=== PATIENT | female | born 1960 | race Caucasian/White ===

== ENCOUNTER 2018-10-19 12:28 | Observation (INO) | payer MEDICAID ==
[~2018-10-19] VITALS: Ht 160 cm; Wt 87.9 kg
[2018-10-19] MEDS ORDERED: LORazepam 1MG TABLET PO ONE ×2 (13:30→16:00)
[2018-10-19 13:33] LABS: ALANINE AMINOTRANSFERASE 32 U/L (12-78); ALBUMIN 4.1 g/dL (3.4-5.0); ANION GAP 8 mmol/L (5-15); CALCIUM 9.8 mg/dL (8.5-10.1); CHLORIDE 108 mmol/L (98-107); CREATININE 1.05 mg/dL (0.55-1.02)
[2018-10-19 13:34] LABS: SALICYLATE LEVEL < 1.7 mg/dL (2.8-20.0)
[2018-10-19] MEDS ORDERED: LORazepam 1MG TABLET ONE ×3 (13:34→17:22)
[2018-10-19 13:35] LABS: ALKALINE PHOSPHATASE 130 U/L (45-117); BILIRUBIN,TOTAL 0.3 mg/dL (0.2-1.0); TOTAL PROTEIN 7.6 g/dL (6.4-8.2)
[2018-10-19 13:37] LABS: ACETAMINOPHEN < 2 mcg/mL (10-30); BASOPHILS # (AUTO) 0.02 x10^3/uL (0-0.1); BASOPHILS % (AUTO) 0 % (0-1); EOSINOPHILS % (AUTO) 1 % (1-7); LYMPHOCYTES # (AUTO) 0.94 x10^3/uL (1-3.4); LYMPHOCYTES % (AUTO) 13 % (22-44); MD NO; MEAN CORPUSCULAR HEMOGLOBIN 32.3 pg (27.0-34.8); MEAN CORPUSCULAR HGB CONC 33.9 g/dL (32.4-35.8); MEAN CORPUSCULAR VOLUME 95.3 fL (80-100); MEAN PLATELET VOLUME 7.9 fL (7.4-10.4); MONOCYTES # (AUTO) 0.54 x10^3/uL (0.2-0.8); MONOCYTES % (AUTO) 7 % (2-9); NEUTROPHILS # (AUTO) 5.75 x10^3/uL (1.8-6.8); NEUTROPHILS % (AUTO) 78 % (42-75); PLATELET COUNT 318 x10^3/uL (130-400); RED CELL DISTRIBUTION WIDTH 13.5 % (9.6-15.2)
[2018-10-19 15:09] LABS: MICROSCOPIC AUTO
[2018-10-19 15:12] LABS: CULTURE INDICATED? YES
[2018-10-19 15:26] LABS: AMPHETAMINE SCREEN, URINE Negative (Negative); BARBITURATE SCREEN, URINE Negative (Negative); BENZODIAZEPINE SCREEN, URINE Negative (Negative); CANNABINOID SCREEN, URINE Negative (Negative); COCAINE SCREEN, URINE Negative (Negative); METHADONE SCREEN, URINE Negative (Negative); OPIATE SCREEN, URINE Negative (Negative)
[2018-10-19] MEDS ORDERED: CHOL20002 PO (15:28)
[2018-10-19] MEDS ORDERED: MILK500C PO (15:28)
[2018-10-19] MEDS ORDERED: LITH450T PO (15:28)
[2018-10-19] MEDS ORDERED: TUMERIC (15:28)
[2018-10-19] MEDS ORDERED: [UNRECOGNIZED DRUG - CODE] PO (15:28)
[2018-10-19] MEDS ORDERED: LORA-446 PO (15:28)
[2018-10-19] MEDS ORDERED: POTA10TA6 PO (15:28)
[2018-10-19] MEDS ORDERED: ASCO-96 PO (15:28)
[2018-10-19] MEDS ORDERED: PRAV10TA2 PO (15:28)
[2018-10-19] MEDS ORDERED: [UNRECOGNIZED DRUG - OTHER] (15:28)
[2018-10-19] MEDS ORDERED: LEVO100T5 PO (15:28)
[2018-10-19] MEDS ORDERED: LEVO1CAP2 PO (15:28)
[2018-10-19] MEDS ORDERED: VALB80CA PO ×2 (15:28)
[2018-10-19] MEDS ORDERED: QUET300T6 PO (15:28)
[2018-10-19] MEDS ORDERED: QUET25TA5 PO (15:28)
[2018-10-19] MEDS ORDERED: BREX2TAB PO (15:28)
[2018-10-19] MEDS ORDERED: MELA1TAB8 PO (15:28)
[2018-10-19] MEDS ORDERED: KRIL500C PO (15:28)
[2018-10-19] MEDS ORDERED: ESTR30CR TP (15:28)
[2018-10-19] MEDS ORDERED: POLY17PO5 PO (15:28)
[2018-10-19] MEDS ORDERED: NEXIUM PO (15:28)
[2018-10-19] MEDS ORDERED: FURO20TA3 PO (15:28)
[2018-10-19] MEDS ORDERED: ZOLP-413 PO (15:28)
[2018-10-19] MEDS ORDERED: ESCI10TA10 PO (15:28)
[2018-10-19] MEDS ORDERED: SENN1TAB67 PO (15:28)
[2018-10-19] MEDS ORDERED: ACET325T26 PO (15:28)
[2018-10-19] MEDS ORDERED: QUET100T4 PO (15:28)
[2018-10-19] MEDS ORDERED: QUET50TA5 PO (15:28)
--- NOTE | 2018-10-19 16:09 | NUR ---
DR WEBER AT BEDSIDE, ASSESSMENT IN PROGRESS
[2018-10-19 16:58] LABS: FREE T4 (FREE THYROXINE) 0.9 ng/dL (0.76-1.46)
--- NOTE | 2018-10-19 16:59 | NUR ---
SITTER MONITORING FROM [facility]
[2018-10-19] MEDS: LORazepam 1MG TABLET PO PRN (17:25)
--- NOTE | 2018-10-19 17:26 | NUR ---
DR WEBER AND KARINA TO PT BEDSIDE, OK TO GIVE ATIVAN DOSE NOW. PT VERY AGITATED
--- NOTE | 2018-10-19 18:10 | NUR ---
SBAR TO JB CHAN VIA TELPHONE
[2018-10-19 19:04] VITALS: BP 144/82
[2018-10-19] MEDS ORDERED: BENZTROPINE 1 MG TABLET PO ONE (20:30)
[2018-10-19] MEDS: ACETAMINOPHEN 500 MG TABLET PO SCH (21:00)
[2018-10-19] MEDS: POLYETHYLENE GLYCOL 17 GM PACKET PO SCH (21:00)
[2018-10-19] MEDS: PYRIDOXINE 50MG TABLET PO SCH (21:00)
[2018-10-19] MEDS ORDERED: QUETIAPINE 25MG TABLET PO SCH (21:00)
[2018-10-19] MEDS ORDERED: VALBENAZINE TOSYLATE PO SCH (21:00)
[2018-10-19] MEDS: PRAVASTATIN 20 MG TABLET PO SCH (21:00)
[2018-10-19] MEDS ORDERED: QUETIAPINE FUMARATE 25 MG PO SCH (21:00)
[2018-10-19] MEDS ORDERED: KRILL OIL PO SCH (21:00)
[2018-10-19] MEDS ORDERED: ZOLPIDEM 5MG TABLET PO SCH (21:00)
[2018-10-19] MEDS ORDERED: [UNRECOGNIZED DRUG - OTHER] PO SCH (21:00)
[2018-10-19] MEDS ORDERED: VALBENAZINE TOSYLATE 80 MG PO SCH (21:00)
[2018-10-19] MEDS ORDERED: LORazepam 1MG TABLET PO SCH (21:00)
[2018-10-19] MEDS ORDERED: VALBENAZINE TOSYLATE 80 MG HOMEMEDPO SCH (21:02)
[2018-10-19] MEDS ORDERED: [UNRECOGNIZED DRUG - OTHER] HOMEMEDPO SCH (21:02)
[2018-10-19] MEDS: SENNA/DOCUSATE TABLET PO SCH (21:14)
[2018-10-19] MEDS: MELATONIN 5 MG TABLET PO SCH (21:14)
[2018-10-20 05:34] LABS: BASOPHILS # (AUTO) 0.02 x10^3/uL (0-0.1); BASOPHILS % (AUTO) 0 % (0-1); EOSINOPHILS # (AUTO) 0.22 x10^3/uL (0-0.4); EOSINOPHILS % (AUTO) 4 % (1-7); LYMPHOCYTES % (AUTO) 28 % (22-44); MD NO; MEAN CORPUSCULAR HEMOGLOBIN 31.9 pg (27.0-34.8); MEAN CORPUSCULAR HGB CONC 33.1 g/dL (32.4-35.8); MEAN CORPUSCULAR VOLUME 96.3 fL (80-100); MEAN PLATELET VOLUME 7.7 fL (7.4-10.4); MONOCYTES # (AUTO) 0.61 x10^3/uL (0.2-0.8); MONOCYTES % (AUTO) 10 % (2-9); NEUTROPHILS # (AUTO) 3.54 x10^3/uL (1.8-6.8); NEUTROPHILS % (AUTO) 58 % (42-75); PLATELET COUNT 298 x10^3/uL (130-400); RED BLOOD COUNT 4.33 x10^6/uL (3.82-5.3); RED CELL DISTRIBUTION WIDTH 13.7 % (9.6-15.2)
[2018-10-20 05:38] LABS: ANION GAP 7 mmol/L (5-15); CALCIUM 9.3 mg/dL (8.5-10.1); CHLORIDE 110 mmol/L (98-107)
[2018-10-20] MEDS: LORazepam 1MG TABLET PO PRN ×2 (07:16→11:00)
[2018-10-20 07:23] VITALS: BP 177/92
[2018-10-20] MEDS ORDERED: ESCITALOPRAM 10MG TABLET PO SCH (09:00)
[2018-10-20] MEDS ORDERED: QUETIAPINE 200 MG TABLET PO SCH (09:00)
[2018-10-20] MEDS ORDERED: QUETIAPINE 100MG TABLET PO SCH (09:00)
[2018-10-20] MEDS ORDERED: FUROSEMIDE 20 MG TABLET PO SCH (09:00)
[2018-10-20] MEDS ORDERED: LITHIUM CARBONATE 150 MG CAPSULE PO SCH (09:00)
[2018-10-20] MEDS ORDERED: BREXPIPRAZOLE 2 MG HOMEMEDPO SCH (09:00)
[2018-10-20] MEDS: SENNA/DOCUSATE TABLET PO SCH ×2 (09:26→20:58)
[2018-10-20] MEDS: ASCORBIC ACID 500 MG TABLET PO SCH (09:26)
[2018-10-20] MEDS: POTASSIUM CHLORIDE 10 MEQ TABLET.ER PO SCH (09:26)
[2018-10-20] MEDS: POLYETHYLENE GLYCOL 17 GM PACKET PO SCH ×2 (09:26→21:00)
[2018-10-20] MEDS: PANTOPROZOLE 40MG TABLET PO SCH (09:29)
[2018-10-20] MEDS: CHOLECALCIFEROL 5,000u TAB PO SCH (10:28)
[2018-10-20] MEDS: LEVOTHYROXINE 100 MCG TABLET PO SCH (10:28)
[2018-10-20 15:11] VITALS: BP 149/96
[2018-10-20 15:50] LABS: ALANINE AMINOTRANSFERASE 29 U/L (12-78); ALBUMIN 4.4 g/dL (3.4-5.0); ANION GAP 7 mmol/L (5-15); CALCIUM 9.6 mg/dL (8.5-10.1); CHLORIDE 111 mmol/L (98-107)
[2018-10-20 15:52] LABS: ALKALINE PHOSPHATASE 120 U/L (45-117); BILIRUBIN,TOTAL 0.4 mg/dL (0.2-1.0); CREATINE KINASE, TOTAL 542 U/L (26-192); TOTAL PROTEIN 7.8 g/dL (6.4-8.2)
[2018-10-20 17:11] VITALS: BP 177/107
[2018-10-20] MEDS ORDERED: SODIUM CHLORIDE 0.9%, 500ML IVBOLUS ONE (17:30)
[2018-10-20] MEDS ORDERED: hydrALAzine 20 MG/ML, 1ML IV PRN (17:30)
[2018-10-20 19:36] VITALS: BP 146/89
[2018-10-20] MEDS: MELATONIN 5 MG TABLET PO SCH (20:58)
[2018-10-20] MEDS: PYRIDOXINE 50MG TABLET PO SCH (20:58)
[2018-10-20] MEDS: PRAVASTATIN 20 MG TABLET PO SCH (20:58)
[2018-10-20] MEDS: ACETAMINOPHEN 500 MG TABLET PO SCH (20:58)
[2018-10-20] MEDS: SODIUM CHLORIDE 0.9% 1,000 ML IV SCH (21:58)
[2018-10-21 02:30] VITALS: BP 105/66
[2018-10-21] MEDS: LEVOTHYROXINE 100 MCG TABLET PO SCH (06:01)
[2018-10-21 06:09] LABS: ALBUMIN 3.4 g/dL (3.4-5.0); ANION GAP 6 mmol/L (5-15); CALCIUM 8.8 mg/dL (8.5-10.1); CHLORIDE 114 mmol/L (98-107)
[2018-10-21 06:13] LABS: ALANINE AMINOTRANSFERASE 25 U/L (12-78); ALKALINE PHOSPHATASE 92 U/L (45-117); BILIRUBIN,TOTAL 0.7 mg/dL (0.2-1.0); CREATINE KINASE, TOTAL 505 U/L (26-192); CREATININE 0.84 mg/dL (0.55-1.02); TOTAL PROTEIN 6.2 g/dL (6.4-8.2)
[2018-10-21 07:03] VITALS: BP 136/78
[2018-10-21] MEDS: ASCORBIC ACID 500 MG TABLET PO SCH (09:28)
[2018-10-21] MEDS: SENNA/DOCUSATE TABLET PO SCH ×2 (09:28→21:21)
[2018-10-21] MEDS: PANTOPROZOLE 40MG TABLET PO SCH (09:28)
[2018-10-21] MEDS: POLYETHYLENE GLYCOL 17 GM PACKET PO SCH ×2 (09:28→21:21)
[2018-10-21] MEDS: CHOLECALCIFEROL 5,000u TAB PO SCH (09:28)
[2018-10-21] MEDS: POTASSIUM CHLORIDE 10 MEQ TABLET.ER PO SCH (09:28)
[2018-10-21] MEDS: SODIUM CHLORIDE 0.9% 1,000 ML IV SCH (09:29)
[2018-10-21 12:52] VITALS: BP 151/97
[2018-10-21 21:04] VITALS: BP 113/75
[2018-10-21] MEDS: ACETAMINOPHEN 500 MG TABLET PO SCH (21:21)
[2018-10-21] MEDS: MELATONIN 5 MG TABLET PO SCH (21:21)
[2018-10-21] MEDS: PRAVASTATIN 20 MG TABLET PO SCH (21:21)
[2018-10-22 04:38] VITALS: BP 125/77
[2018-10-22] MEDS: LEVOTHYROXINE 100 MCG TABLET PO SCH (05:10)
[2018-10-22 05:44] LABS: BASOPHILS # (AUTO) 0.02 x10^3/uL (0-0.1); BASOPHILS % (AUTO) 0 % (0-1); EOSINOPHILS # (AUTO) 0.16 x10^3/uL (0-0.4); EOSINOPHILS % (AUTO) 2 % (1-7); LYMPHOCYTES # (AUTO) 2.23 x10^3/uL (1-3.4); LYMPHOCYTES % (AUTO) 32 % (22-44); MD NO; MEAN CORPUSCULAR HEMOGLOBIN 32.3 pg (27.0-34.8); MEAN CORPUSCULAR HGB CONC 33.6 g/dL (32.4-35.8); MEAN CORPUSCULAR VOLUME 96.1 fL (80-100); MEAN PLATELET VOLUME 7.8 fL (7.4-10.4); MONOCYTES # (AUTO) 0.61 x10^3/uL (0.2-0.8); MONOCYTES % (AUTO) 9 % (2-9); NEUTROPHILS # (AUTO) 4.03 x10^3/uL (1.8-6.8); NEUTROPHILS % (AUTO) 57 % (42-75); PLATELET COUNT 287 x10^3/uL (130-400); RED BLOOD COUNT 4.07 x10^6/uL (3.82-5.3); RED CELL DISTRIBUTION WIDTH 13.6 % (9.6-15.2)
[2018-10-22 05:52] LABS: ALBUMIN 4.1 g/dL (3.4-5.0); ANION GAP 7 mmol/L (5-15); CALCIUM 9.4 mg/dL (8.5-10.1); CHLORIDE 114 mmol/L (98-107)
[2018-10-22 05:59] LABS: ALANINE AMINOTRANSFERASE 33 U/L (12-78); ALKALINE PHOSPHATASE 105 U/L (45-117); BILIRUBIN,TOTAL 0.5 mg/dL (0.2-1.0); CREATINE KINASE, TOTAL 534 U/L (26-192); CREATININE 0.84 mg/dL (0.55-1.02); TOTAL PROTEIN 7.4 g/dL (6.4-8.2)
[2018-10-22 08:30] VITALS: BP_SYST 125; BP_SYST 127; BP_DIAS 76
[2018-10-22] MEDS: POLYETHYLENE GLYCOL 17 GM PACKET PO SCH (09:00)
[2018-10-22] MEDS: PANTOPROZOLE 40MG TABLET PO SCH (09:40)
[2018-10-22] MEDS: POTASSIUM CHLORIDE 10 MEQ TABLET.ER PO SCH (09:40)
[2018-10-22] MEDS: CHOLECALCIFEROL 5,000u TAB PO SCH (09:41)
[2018-10-22] MEDS: SENNA/DOCUSATE TABLET PO SCH (09:41)
[2018-10-22] MEDS: ASCORBIC ACID 500 MG TABLET PO SCH (09:41)
[2018-10-22] MEDS ORDERED: CLON1TAB11 PO (14:48)
== END 2018-10-22 16:48 ==
LOC: ED 13:31 → EDIP 15:43 → 2N 18:40 → 4EST 10-20 18:28
PROVIDERS: ADMIT Internal Medicine; ATTEND Internal Medicine
DX: F23 Brief psychotic disorder (principal); E03.9 Hypothyroidism, unspecified; F25.0 Schizoaffective disorder, bipolar type; F41.9 Anxiety disorder, unspecified; G20 Parkinson's disease; G24.01 Drug induced subacute dyskinesia; G25.2 Other specified forms of tremor; K76.0 Fatty (change of) liver, not elsewhere classified; Z82.0 Family history of epilepsy and other diseases of the nervous system; Z82.49 Family history of ischemic heart disease and other diseases of the circulatory system; Z90.49 Acquired absence of other specified parts of digestive tract; Z79.899 Other long term (current) drug therapy
CPT/HCPCS: 36415; 80048; 80053; 80178; 80307; 80329; 81001; 82175; 82550; 82570; 83655; 83825; 84439; 84443; 84481; 85025; 86592; 87086; 93005; 99284; G0378; J7030; J7040; G0480

== ENCOUNTER 2018-10-22 14:34 | Inpatient (IN) | payer MEDICAID ==
[~2018-10-22] VITALS: Ht 160 cm; Wt 103.9 kg
[~2018-10-22 14:34] MED LIST: ACET325T26 PO; ASCO-96 PO; BREX2TAB PO; CHOL20002 PO; ESCI10TA10 PO; ESTR30CR TP; FURO20TA3 PO; KRIL500C PO; LEVO100T5 PO; LEVO1CAP2 PO; LITH450T PO; LORA-446 PO; MELA1TAB8 PO; MILK500C PO; NEXIUM PO; POLY17PO5 PO; POTA10TA6 PO; PRAV10TA2 PO; QUET100T4 PO; QUET25TA5 PO; QUET300T7 PO; QUET50TA5 PO; SENN1TAB67 PO; TUMERIC; VALB80CA PO; ZOLP-413 PO; [UNRECOGNIZED DRUG - CODE] PO; [UNRECOGNIZED DRUG - OTHER]
[2018-10-22] MEDS ORDERED: CLON1TAB11 PO (14:48)
[2018-10-22] MEDS ORDERED: DOCUSATE 100 MG CAPSULE PO PRN (15:00)
[2018-10-22] MEDS ORDERED: BISACODYL 10 MG SUPP PR PRN (15:00)
[2018-10-22] MEDS ORDERED: POLYETHYLENE GLYCOL 17 GM PACKET PO PRN (15:00)
[2018-10-22] MEDS ORDERED: PLEASE ENTER HEIGHT AND WEIGHT MC SCH (17:01)
[2018-10-22 17:30] VITALS: BP 133/85
[2018-10-22] MEDS ORDERED: LORazepam 2 MG/ML, 1ML ONE (17:55)
[2018-10-22] MEDS: LORazepam 2 MG/ML, 1ML IM PRN (18:01)
[2018-10-22 20:51] VITALS: BP 136/70
[2018-10-23 06:06] LABS: ANION GAP 8 mmol/L (5-15); BASOPHILS # (AUTO) 0.02 x10^3/uL (0-0.1); BASOPHILS % (AUTO) 0 % (0-1); CALCIUM 9.1 mg/dL (8.5-10.1); CHLORIDE 111 mmol/L (98-107); EOSINOPHILS # (AUTO) 0.23 x10^3/uL (0-0.4); EOSINOPHILS % (AUTO) 3 % (1-7); LYMPHOCYTES # (AUTO) 1.53 x10^3/uL (1-3.4); LYMPHOCYTES % (AUTO) 19 % (22-44); MD NO; MEAN CORPUSCULAR HEMOGLOBIN 32.1 pg (27.0-34.8); MEAN CORPUSCULAR HGB CONC 33.5 g/dL (32.4-35.8); MEAN CORPUSCULAR VOLUME 95.8 fL (80-100); MEAN PLATELET VOLUME 7.8 fL (7.4-10.4); MONOCYTES # (AUTO) 0.69 x10^3/uL (0.2-0.8); MONOCYTES % (AUTO) 9 % (2-9); NEUTROPHILS # (AUTO) 5.53 x10^3/uL (1.8-6.8); NEUTROPHILS % (AUTO) 69 % (42-75); PLATELET COUNT 284 x10^3/uL (130-400); RED BLOOD COUNT 4.05 x10^6/uL (3.82-5.3); RED CELL DISTRIBUTION WIDTH 13.3 % (9.6-15.2)
[2018-10-23 06:30] LABS: ALANINE AMINOTRANSFERASE 41 U/L (12-78); ALKALINE PHOSPHATASE 102 U/L (45-117); BILIRUBIN,TOTAL 0.4 mg/dL (0.2-1.0); CHOL/HDL RATIO 2.4; CHOLESTEROL, TOTAL 166 mg/dL (140-239); CREATININE 0.85 mg/dL (0.55-1.02); HDL CHOL % 42 % (28-40); HDL CHOLESTEROL (DIRECT) 70 mg/dL (40-60); LDL CHOLESTEROL,CALCULATED 80 mg/dL (54-169); LDL/HDL RATIO 1.1 (0.5-3.0); TOTAL PROTEIN 7.1 g/dL (6.4-8.2); TRIGLYCERIDES 81 mg/dL (50-200); VLDL CHOLESTEROL 16 mg/dL (0-25)
[2018-10-23 06:31] LABS: FREE T4 (FREE THYROXINE) 1.09 ng/dL (0.76-1.46); THYROID STIMULATING HORMONE 0.159 mIU/L (0.358-3.740)
[2018-10-23 06:34] LABS: FOLATE LEVEL > 20.0 ng/mL (3.1-17.5)
[2018-10-23 07:30] VITALS: BP 141/74
[2018-10-23] MEDS: QUETIAPINE 25MG TABLET PO SCH ×3 (15:55→20:23)
[2018-10-23 16:00] VITALS: BP 144/85
[2018-10-23 19:28] VITALS: BP 132/77
[2018-10-24 06:54] LABS: ANION GAP 8 mmol/L (5-15); CALCIUM 8.8 mg/dL (8.5-10.1); CHLORIDE 112 mmol/L (98-107); CREATININE 0.76 mg/dL (0.55-1.02)
[2018-10-24 06:57] LABS: CREATINE KINASE, TOTAL 549 U/L (26-192)
[2018-10-24 07:20] VITALS: BP 115/85
[2018-10-24] MEDS: QUETIAPINE 25MG TABLET PO SCH ×3 (09:48→20:23)
[2018-10-24 19:27] VITALS: BP 140/83
[2018-10-25] MEDS: MELATONIN 5 MG TABLET PO PRN (01:23)
[2018-10-25 07:12] VITALS: BP 156/88
[2018-10-25] MEDS: QUETIAPINE 25MG TABLET PO SCH ×3 (09:43→20:17)
[2018-10-25] MEDS: ACETAMINOPHEN 325 MG TABLET PO PRN (16:17)
[2018-10-25 16:23] VITALS: BP 147/83
[2018-10-25 19:37] VITALS: BP 156/76
[2018-10-25] MEDS: PRIMIDONE 50 MG TABLET PO SCH (20:17)
[2018-10-26] MEDS: MELATONIN 5 MG TABLET PO PRN ×2 (00:31→21:02)
[2018-10-26 07:44] VITALS: BP 159/87
[2018-10-26] MEDS: QUETIAPINE 25MG TABLET PO SCH ×3 (09:45→21:02)
[2018-10-26 19:22] VITALS: BP_SYST 116; BP_SYST 144; BP_DIAS 73; BP_DIAS 85
[2018-10-26] MEDS ORDERED: PRIMIDONE 250 MG TABLET ONE (20:52)
[2018-10-26] MEDS: PRIMIDONE 50 MG TABLET PO SCH (21:57)
[2018-10-27 07:42] VITALS: BP 163/95
[2018-10-27] MEDS: QUETIAPINE 25MG TABLET PO SCH ×3 (08:55→21:07)
[2018-10-27 20:11] VITALS: BP 159/87
[2018-10-27] MEDS: PRIMIDONE 50 MG TABLET PO SCH (21:08)
[2018-10-28 07:32] VITALS: BP 148/84
[2018-10-28] MEDS: QUETIAPINE 25MG TABLET PO SCH ×3 (08:34→20:19)
[2018-10-28 19:20] VITALS: BP 166/90
[2018-10-28] MEDS: TRIHEXYPHENIDYL 2MG TABLET PO SCH (20:18)
[2018-10-28] MEDS: PRIMIDONE 50 MG TABLET PO SCH (20:18)
[2018-10-28 20:39] VITALS: BP 163/100
[2018-10-28 21:31] VITALS: BP 115/79
[2018-10-29 07:21] VITALS: BP 176/89
[2018-10-29] MEDS: VENLAFAXINE XR 37.5MG CAP.ER.24H PO SCH (09:33)
[2018-10-29] MEDS: TRIHEXYPHENIDYL 2MG TABLET PO SCH ×2 (09:33→20:18)
[2018-10-29] MEDS: VITAMIN E 400 UNITS CAPSULE PO SCH (09:34)
[2018-10-29] MEDS: QUETIAPINE 25MG TABLET PO SCH ×3 (09:34→20:17)
[2018-10-29] MEDS: PRIMIDONE 50 MG TABLET PO SCH (20:18)
[2018-10-29] MEDS: MELATONIN 5 MG TABLET PO PRN (20:18)
[2018-10-30 07:20] VITALS: BP 151/89
[2018-10-30] MEDS: QUETIAPINE 25MG TABLET PO SCH ×3 (08:29→20:15)
[2018-10-30] MEDS: VENLAFAXINE XR 37.5MG CAP.ER.24H PO SCH (08:29)
[2018-10-30] MEDS: VITAMIN E 400 UNITS CAPSULE PO SCH (08:29)
[2018-10-30 19:12] VITALS: BP 169/98
[2018-10-30] MEDS: TRIHEXYPHENIDYL 2MG TABLET PO SCH (20:11)
[2018-10-30] MEDS: PRIMIDONE 50 MG TABLET PO SCH (20:13)
[2018-10-30 20:57] VITALS: BP 141/83
[2018-10-31] MEDS: MELATONIN 5 MG TABLET PO PRN (00:48)
[2018-10-31] MEDS: ACETAMINOPHEN 325 MG TABLET PO PRN ×2 (00:48→22:00)
[2018-10-31 07:40] VITALS: BP 142/75
[2018-10-31] MEDS: QUETIAPINE 25MG TABLET PO SCH ×3 (08:15→22:00)
[2018-10-31] MEDS: VITAMIN E 400 UNITS CAPSULE PO SCH ×2 (08:15→09:00)
[2018-10-31] MEDS: VENLAFAXINE XR 37.5MG CAP.ER.24H PO SCH (08:15)
[2018-10-31] MEDS: LEVOTHYROXINE 50 MCG TABLET PO SCH (15:46)
[2018-10-31] MEDS: LITHIUM CARBONATE 300 MG CAPSULE PO SCH (15:46)
[2018-10-31 19:44] VITALS: BP 152/86
[2018-10-31] MEDS: TRIHEXYPHENIDYL 2MG TABLET PO SCH (22:00)
[2018-10-31] MEDS: PRIMIDONE 50 MG TABLET PO SCH (22:00)
[2018-11-01 07:38] VITALS: BP 153/85
[2018-11-01] MEDS: LEVOTHYROXINE 50 MCG TABLET PO SCH (08:52)
[2018-11-01] MEDS: LITHIUM CARBONATE 300 MG CAPSULE PO SCH (08:52)
[2018-11-01] MEDS: VITAMIN E 400 UNITS CAPSULE PO SCH (08:52)
[2018-11-01] MEDS: VENLAFAXINE 75 MG CAP ER PO SCH (08:52)
[2018-11-01] MEDS: QUETIAPINE 25MG TABLET PO SCH ×3 (08:58→19:52)
[2018-11-01 15:12] LABS: BASOPHILS # (AUTO) 0.03 x10^3/uL (0-0.1); BASOPHILS % (AUTO) 0 % (0-1); EOSINOPHILS # (AUTO) 0.04 x10^3/uL (0-0.4); EOSINOPHILS % (AUTO) 0 % (1-7); LYMPHOCYTES # (AUTO) 1.39 x10^3/uL (1-3.4); LYMPHOCYTES % (AUTO) 13 % (22-44); MD NO; MEAN CORPUSCULAR HGB CONC 32.3 g/dL (32.4-35.8); MEAN CORPUSCULAR VOLUME 95.8 fL (80-100); MEAN PLATELET VOLUME 8.6 fL (7.4-10.4); MONOCYTES # (AUTO) 0.91 x10^3/uL (0.2-0.8); MONOCYTES % (AUTO) 8 % (2-9); NEUTROPHILS # (AUTO) 8.47 x10^3/uL (1.8-6.8); NEUTROPHILS % (AUTO) 78 % (42-75); PLATELET COUNT 345 x10^3/uL (130-400); RED BLOOD COUNT 4.96 x10^6/uL (3.82-5.3); RED CELL DISTRIBUTION WIDTH 13.3 % (9.6-15.2)
[2018-11-01 15:13] LABS: ALANINE AMINOTRANSFERASE 49 U/L (12-78); ALBUMIN 4.1 g/dL (3.4-5.0); ANION GAP 9 mmol/L (5-15); CALCIUM 9.9 mg/dL (8.5-10.1); CHLORIDE 108 mmol/L (98-107); CREATININE 0.96 mg/dL (0.55-1.02)
[2018-11-01 15:15] LABS: ALKALINE PHOSPHATASE 105 U/L (45-117); BILIRUBIN,TOTAL 0.3 mg/dL (0.2-1.0); CREATINE KINASE, TOTAL 65 U/L (26-192); TOTAL PROTEIN 7.9 g/dL (6.4-8.2)
[2018-11-01] MEDS: CLINDAMYCIN PMX 600MG/50ML 50 ML IV SCH ×2 (15:42→22:48)
[2018-11-01] MEDS: NS + 20MEQ KCL 1,000 ML IV SCH (16:41)
[2018-11-01] MEDS: TRIHEXYPHENIDYL 2MG TABLET PO SCH (19:52)
[2018-11-01] MEDS: PRIMIDONE 50 MG TABLET PO SCH (19:53)
[2018-11-01 22:23] VITALS: BP 174/95
[2018-11-02] MEDS: LORazepam 2 MG/ML, 1ML IM PRN (02:19)
[2018-11-02] MEDS: LEVOTHYROXINE 50 MCG TABLET PO SCH (06:15)
[2018-11-02] MEDS: NS + 20MEQ KCL 1,000 ML IV SCH (06:20)
[2018-11-02] MEDS: CLINDAMYCIN PMX 600MG/50ML 50 ML IV SCH ×3 (07:09→23:26)
[2018-11-02 07:28] VITALS: BP 163/82
[2018-11-02] MEDS: QUETIAPINE 25MG TABLET PO SCH ×2 (08:40→21:36)
[2018-11-02] MEDS: LITHIUM CARBONATE 300 MG CAPSULE PO SCH (08:40)
[2018-11-02] MEDS: VENLAFAXINE 75 MG CAP ER PO SCH (08:40)
[2018-11-02] MEDS: VITAMIN E 400 UNITS CAPSULE PO SCH (08:41)
[2018-11-02] MEDS: ENOXAPARIN 40 MG/0.4 ML SQ SCH (14:53)
[2018-11-02] MEDS: SODIUM CHLORIDE 0.9% 1,000 ML IV SCH (20:48)
[2018-11-02 21:00] VITALS: BP 171/94
[2018-11-02] MEDS: TRIHEXYPHENIDYL 2MG TABLET PO SCH (21:36)
[2018-11-02] MEDS: PRIMIDONE 50 MG TABLET PO SCH (21:37)
[2018-11-02 22:34] VITALS: BP 171/81
[2018-11-02 22:36] VITALS: BP 171/81
[2018-11-03] MEDS: MELATONIN 5 MG TABLET PO PRN (01:50)
[2018-11-03] MEDS: SODIUM CHLORIDE 0.9% 1,000 ML IV SCH ×2 (03:20→14:43)
[2018-11-03] MEDS: LEVOTHYROXINE 50 MCG TABLET PO SCH (05:50)
[2018-11-03] MEDS ORDERED: LORazepam 2 MG/ML, 1ML IM ONE (07:00)
[2018-11-03 07:30] VITALS: BP 157/94
[2018-11-03] MEDS: CLINDAMYCIN PMX 600MG/50ML 50 ML IV SCH ×3 (08:18→22:13)
[2018-11-03] MEDS: VENLAFAXINE 75 MG CAP ER PO SCH (08:22)
[2018-11-03] MEDS: LITHIUM CARBONATE 150 MG CAPSULE PO SCH (08:23)
[2018-11-03] MEDS: VITAMIN E 400 UNITS CAPSULE PO SCH (08:52)
[2018-11-03] MEDS ORDERED: TPN PER PHARMACY MC PRN (11:00)
[2018-11-03] MEDS: ENOXAPARIN 40 MG/0.4 ML SQ SCH (14:04)
[2018-11-03] MEDS ORDERED: FILTER, DISP 1.2 MICRON FOR TPN/PVN IV PRN (15:00)
[2018-11-03] MEDS ORDERED: FAT EMUL IV SCH (17:00)
[2018-11-03] MEDS ORDERED: DEXTROSE 10% 500 ML IV PRN (17:00)
[2018-11-03] MEDS ORDERED: SMOF TPN IV SCH (17:00)
[2018-11-03] MEDS ORDERED: PVN PER PHARMACY IV SCH (17:00)
[2018-11-03] MEDS ORDERED: AMINO ACID 10% IV SCH (17:00)
[2018-11-03] MEDS ORDERED: [UNRECOGNIZED DRUG - OTHER] IV SCH (17:00)
[2018-11-03] MEDS ORDERED: DEXTROSE 50%, 50ML SYRINGE IVPush PRN (17:00)
[2018-11-03] MEDS ORDERED: DEXTROSE 70% IV SCH (17:00)
[2018-11-03 18:15] VITALS: BP 181/73
[2018-11-03] MEDS: PRIMIDONE 50 MG TABLET PO SCH (20:30)
[2018-11-03] MEDS: TRIHEXYPHENIDYL 2MG TABLET PO SCH (20:30)
[2018-11-03] MEDS ORDERED: ZOLPIDEM 5MG TABLET PO SCH (21:00)
[2018-11-04] MEDS: LEVOTHYROXINE 50 MCG TABLET PO SCH (05:35)
[2018-11-04] MEDS: INSULIN REGULAR LOW DOSE Q6H X 48HRS SQ-INSULIN SCH ×2 (06:00→12:41)
[2018-11-04] MEDS: CLINDAMYCIN PMX 600MG/50ML 50 ML IV SCH (06:19)
[2018-11-04 07:38] VITALS: BP 173/104
[2018-11-04 07:38] LABS: ALANINE AMINOTRANSFERASE 36 U/L (12-78); ALBUMIN 3.5 g/dL (3.4-5.0); ANION GAP 6 mmol/L (5-15); CALCIUM 9.3 mg/dL (8.5-10.1); CHLORIDE 116 mmol/L (98-107); CREATININE 0.93 mg/dL (0.55-1.02)
[2018-11-04 07:43] LABS: ALKALINE PHOSPHATASE 101 U/L (45-117); BILIRUBIN,TOTAL 0.4 mg/dL (0.2-1.0); PREALBUMIN 32.9 mg/dL (20.0-40.0); TOTAL PROTEIN 7.3 g/dL (6.4-8.2)
[2018-11-04 08:08] LABS: MEAN CORPUSCULAR HEMOGLOBIN 30.9 pg (27.0-34.8); MEAN CORPUSCULAR HGB CONC 32.8 g/dL (32.4-35.8); MEAN CORPUSCULAR VOLUME 94.3 fL (80-100); MEAN PLATELET VOLUME 8.4 fL (7.4-10.4); PLATELET COUNT 354 x10^3/uL (130-400); RED BLOOD COUNT 4.59 x10^6/uL (3.82-5.3); RED CELL DISTRIBUTION WIDTH 13.6 % (9.6-15.2)
[2018-11-04 08:24] LABS: BASOPHILS # (AUTO) 0.02 x10^3/uL (0-0.1); BASOPHILS % (AUTO) 0 % (0-1); EOSINOPHILS # (AUTO) 0.09 x10^3/uL (0-0.4); EOSINOPHILS % (AUTO) 1 % (1-7); LYMPHOCYTES # (AUTO) 1.45 x10^3/uL (1-3.4); LYMPHOCYTES % (AUTO) 9 % (22-44); MD SCAN; MONOCYTES % (AUTO) 6 % (2-9); NEUTROPHILS # (AUTO) 14.35 x10^3/uL (1.8-6.8); NEUTROPHILS % (AUTO) 85 % (42-75)
[2018-11-04] MEDS: VENLAFAXINE 75 MG CAP ER PO SCH (08:38)
[2018-11-04] MEDS: LITHIUM CARBONATE 150 MG CAPSULE PO SCH (08:39)
[2018-11-04] MEDS: ACETAMINOPHEN 325 MG TABLET PO PRN (08:39)
[2018-11-04] MEDS: VITAMIN E 400 UNITS CAPSULE PO SCH (09:00)
[2018-11-04] MEDS ORDERED: CEFTRIAXONE PMX 2GM/50ML 50 ML IV SCH (10:30)
[2018-11-04 10:48] LABS: MICROSCOPIC NOT IND
[2018-11-04] MEDS ORDERED: FUROSEMIDE 40 MG/4 ML IV ONE (11:30)
[2018-11-04] MEDS ORDERED: hydrALAzine 20 MG/ML, 1ML IV PRN (13:00)
[2018-11-04 14:21] VITALS: BP 158/84
[2018-11-04] MEDS ORDERED: SODIUM CHLORIDE 0.9% 1,000 ML IV SCH (15:00)
[2018-11-04] MEDS: ENOXAPARIN 40 MG/0.4 ML SQ SCH (15:13)
[2018-11-04] MEDS ORDERED: DEXTROSE 70% IV SCH (17:00)
[2018-11-04] MEDS ORDERED: SMOF TPN IV SCH (17:00)
[2018-11-04] MEDS ORDERED: FAT EMUL IV SCH (17:00)
[2018-11-04] MEDS ORDERED: AMINO ACID 10% IV SCH (17:00)
[2018-11-04] MEDS ORDERED: [UNRECOGNIZED DRUG - OTHER] IV SCH (17:00)
[2018-11-05] MEDS ORDERED: TAMSULOSIN 0.4 MG CAP.ER.24H PO SCH (09:00)
[2018-11-05] MEDS ORDERED: LISINOPRIL 20 MG TABLET PO SCH (09:00)
[2018-11-06] MEDS ORDERED: INSULIN REGULAR LOW DOSE QDAY SQ-INSULIN SCH (07:30)
== END 2018-11-04 15:51 | disposition short-term general hospital (02) | DRG 885 ==
LOC: 3E 16:50
PROVIDERS: ADMIT Psychiatry & Neurology Psychosomatic Medicine; ATTEND Psychiatry & Neurology Psychosomatic Medicine
PROC: 3E0336Z Introduction of Nutritional Substance into Peripheral Vein, Percutaneous Approach (ICD-10-PCS; principal; 2018-11-03)
DX: F25.0 Schizoaffective disorder, bipolar type (principal); J69.0 Pneumonitis due to inhalation of food and vomit; Z68.41 Body mass index [BMI] 40.0-44.9, adult; E03.9 Hypothyroidism, unspecified; E66.9 Obesity, unspecified; E83.41 Hypermagnesemia; F41.9 Anxiety disorder, unspecified; G25.0 Essential tremor; G25.2 Other specified forms of tremor; G20 Parkinson's disease; G24.01 Drug induced subacute dyskinesia; T50.995A Adverse effect of other drugs, medicaments and biological substances, initial encounter; I10 Essential (primary) hypertension; R79.89 Other specified abnormal findings of blood chemistry; R00.0 Tachycardia, unspecified; R47.02 Dysphasia; R33.9 Retention of urine, unspecified; R62.7 Adult failure to thrive; K76.0 Fatty (change of) liver, not elsewhere classified; Z88.8 Allergy status to other drugs, medicaments and biological substances; Y92.89 Other specified places as the place of occurrence of the external cause; Z82.0 Family history of epilepsy and other diseases of the nervous system; Z82.49 Family history of ischemic heart disease and other diseases of the circulatory system; Z88.0 Allergy status to penicillin; Z90.49 Acquired absence of other specified parts of digestive tract
CPT/HCPCS: 36415; J3475; 71045; 80048; 80053; 80061; 81003; 82550; 82607; 82746; 82962; 83605; 83735; 84100; 84134; 84439; 84443; 85025; 87040; J0610; J0696; J1644; J1650; J1940; J3480; 92523-GN; J2060; J3420; J7030

== ENCOUNTER 2018-11-04 13:45 | Inpatient (IN) | payer MEDICAID ==
[~2018-11-04] VITALS: Ht 160 cm; Wt 81.3 kg
[~2018-11-04 13:45] MED LIST changes: +CLON1TAB11 PO
[2018-11-04 15:55] VITALS: BP 147/63
[2018-11-04] MEDS ORDERED: TPN PER PHARMACY MC PRN (16:30)
[2018-11-04] MEDS ORDERED: SODIUM CHLORIDE 0.9% 1,000 ML IV SCH (16:30)
[2018-11-04] MEDS ORDERED: ONDANSETRON 2MG/ML, 2ML IVPush PRN (16:30)
[2018-11-04] MEDS ORDERED: ACETAMINOPHEN 325 MG TABLET PO PRN (16:30)
[2018-11-04] MEDS: PLEASE ENTER HEIGHT AND WEIGHT MC SCH (16:30)
[2018-11-04 16:50] LABS: BASOPHILS # (AUTO) 0.01 x10^3/uL (0-0.1); BASOPHILS % (AUTO) 0 % (0-1); EOSINOPHILS # (AUTO) 0.17 x10^3/uL (0-0.4); EOSINOPHILS % (AUTO) 1 % (1-7); LYMPHOCYTES % (AUTO) 8 % (22-44); MD NO; MEAN CORPUSCULAR HEMOGLOBIN 31.5 pg (27.0-34.8); MEAN CORPUSCULAR HGB CONC 33.5 g/dL (32.4-35.8); MEAN CORPUSCULAR VOLUME 94.2 fL (80-100); MONOCYTES # (AUTO) 0.43 x10^3/uL (0.2-0.8); MONOCYTES % (AUTO) 3 % (2-9); NEUTROPHILS # (AUTO) 13.14 x10^3/uL (1.8-6.8); NEUTROPHILS % (AUTO) 88 % (42-75); PLATELET COUNT 351 x10^3/uL (130-400); RED BLOOD COUNT 4.63 x10^6/uL (3.82-5.3); RED CELL DISTRIBUTION WIDTH 13.1 % (9.6-15.2)
[2018-11-04] MEDS ORDERED: DEXTROSE 10% 500 ML IV PRN (17:00)
[2018-11-04] MEDS ORDERED: DEXTROSE 50%, 50ML SYRINGE IVPush PRN (17:00)
[2018-11-04 17:11] LABS: ALANINE AMINOTRANSFERASE 38 U/L (12-78); ALBUMIN 3.8 g/dL (3.4-5.0); ANION GAP 9 mmol/L (5-15); CALCIUM 9.3 mg/dL (8.5-10.1); CHLORIDE 114 mmol/L (98-107); CREATININE 0.95 mg/dL (0.55-1.02)
[2018-11-04 17:13] LABS: ALKALINE PHOSPHATASE 105 U/L (45-117); BILIRUBIN,TOTAL 0.6 mg/dL (0.2-1.0); TOTAL PROTEIN 7.5 g/dL (6.4-8.2)
[2018-11-04] MEDS ORDERED: FAT EMUL IV SCH (17:30)
[2018-11-04] MEDS ORDERED: AMINO ACID 10% IV SCH (17:30)
[2018-11-04] MEDS ORDERED: DEXTROSE 70% IV SCH (17:30)
[2018-11-04] MEDS ORDERED: FILTER, DISP 1.2 MICRON FOR TPN/PVN IV PRN (17:30)
[2018-11-04] MEDS ORDERED: SMOF TPN IV SCH (17:30)
[2018-11-04] MEDS ORDERED: [UNRECOGNIZED DRUG - OTHER] IV SCH (17:30)
[2018-11-04] MEDS ORDERED: CEFTRIAXONE PMX 2GM/50ML 50 ML IV SCH (18:30)
[2018-11-04 18:50] VITALS: BP 166/80
[2018-11-04] MEDS: ENOXAPARIN 40 MG/0.4 ML SQ SCH (20:15)
[2018-11-04] MEDS: TRIHEXYPHENIDYL 2MG TABLET PO SCH (20:23)
[2018-11-04] MEDS: MELATONIN 5 MG TABLET PO SCH (20:23)
[2018-11-04] MEDS: DOCUSATE 100 MG CAPSULE PO SCH (20:23)
[2018-11-04] MEDS: INSULIN REGULAR LOW DOSE Q6H X 48HRS SQ-INSULIN SCH (22:00)
[2018-11-05] MEDS: PLEASE ENTER HEIGHT AND WEIGHT MC SCH ×9 (00:09→16:00)
[2018-11-05 01:24] VITALS: BP 162/89
[2018-11-05] MEDS: INSULIN REGULAR LOW DOSE Q6H X 48HRS SQ-INSULIN SCH ×3 (04:00→16:00)
[2018-11-05] MEDS: LEVOTHYROXINE 50 MCG TABLET PO SCH (04:07)
[2018-11-05 06:24] LABS: ANION GAP 10 mmol/L (5-15); CALCIUM 9.6 mg/dL (8.5-10.1); CHLORIDE 112 mmol/L (98-107); CREATININE 1.03 mg/dL (0.55-1.02)
[2018-11-05 06:27] LABS: CREATINE KINASE, TOTAL 670 U/L (26-192)
[2018-11-05] MEDS ORDERED: ATENOLOL 25 MG TABLET PO SCH (07:00)
[2018-11-05 07:26] LABS: BASOPHILS # (AUTO) 0.02 x10^3/uL (0-0.1); BASOPHILS % (AUTO) 0 % (0-1); EOSINOPHILS # (AUTO) 0.01 x10^3/uL (0-0.4); EOSINOPHILS % (AUTO) 0 % (1-7); LYMPHOCYTES # (AUTO) 1.22 x10^3/uL (1-3.4); LYMPHOCYTES % (AUTO) 9 % (22-44); MD NO; MEAN CORPUSCULAR HEMOGLOBIN 31.2 pg (27.0-34.8); MEAN CORPUSCULAR HGB CONC 33.5 g/dL (32.4-35.8); MEAN CORPUSCULAR VOLUME 93.3 fL (80-100); MONOCYTES # (AUTO) 0.92 x10^3/uL (0.2-0.8); MONOCYTES % (AUTO) 7 % (2-9); NEUTROPHILS % (AUTO) 84 % (42-75); PLATELET COUNT 367 x10^3/uL (130-400); RED BLOOD COUNT 4.97 x10^6/uL (3.82-5.3); RED CELL DISTRIBUTION WIDTH 13.2 % (9.6-15.2)
[2018-11-05 08:00] VITALS: BP 143/79
[2018-11-05] MEDS ORDERED: LORazepam 2 MG/ML, 1ML ONE (08:47)
[2018-11-05] MEDS ORDERED: VENLAFAXINE 75MG TABLET PO SCH (09:00)
[2018-11-05] MEDS ORDERED: PRIMIDONE 50 MG TABLET PO SCH (09:00)
[2018-11-05] MEDS: NITROGLYCERIN OINT 2%, 1GM TP SCH ×3 (09:00→21:40)
[2018-11-05] MEDS ORDERED: LITHIUM CARBONATE 150 MG CAPSULE PO SCH (09:00)
[2018-11-05] MEDS ORDERED: LORazepam 2 MG/ML, 1ML IVPush PRN ×2 (09:00→13:00)
[2018-11-05] MEDS: DOCUSATE 100 MG CAPSULE PO SCH ×2 (09:00→21:00)
[2018-11-05] MEDS ORDERED: LISINOPRIL 20 MG TABLET PO SCH (09:00)
[2018-11-05] MEDS: VITAMIN E 400 UNITS CAPSULE PO SCH (09:00)
[2018-11-05] MEDS: MEROPENEM 1 GM in SODIUM CHLORIDE 0.9% 100 ML IV SCH ×2 (10:59→17:51)
[2018-11-05 13:46] LABS: ALANINE AMINOTRANSFERASE 33 U/L (12-78); ALBUMIN 3.7 g/dL (3.4-5.0); ANION GAP 11 mmol/L (5-15); BILIRUBIN, DIRECT 0.2 mg/dL (0.1-0.2); CALCIUM 9.6 mg/dL (8.5-10.1); CHLORIDE 110 mmol/L (98-107); CREATININE 1.04 mg/dL (0.55-1.02)
[2018-11-05 13:48] LABS: ALKALINE PHOSPHATASE 107 U/L (45-117); BILIRUBIN,INDIRECT 0.3 mg/dL (0.0-2.0); BILIRUBIN,TOTAL 0.5 mg/dL (0.2-1.0); CREATINE KINASE, TOTAL 675 U/L (26-192); TOTAL PROTEIN 7.7 g/dL (6.4-8.2)
[2018-11-05 14:37] VITALS: BP 160/96
[2018-11-05] MEDS: LORazepam 2 MG/ML, 1ML IVPush SCH (14:54)
[2018-11-05] MEDS ORDERED: ACETAMINOPHEN 650 MG SUPP ONE (15:13)
[2018-11-05] MEDS ORDERED: LORazepam 2 MG/ML, 1ML IVPush ONE (15:30)
[2018-11-05] MEDS ORDERED: ACETAMINOPHEN 650 MG SUPP PR PRN (15:30)
[2018-11-05] MEDS ORDERED: FAT EMUL IV SCH (17:00)
[2018-11-05] MEDS ORDERED: AMINO ACID 10% IV SCH (17:00)
[2018-11-05] MEDS ORDERED: DEXTROSE 70% IV SCH (17:00)
[2018-11-05] MEDS ORDERED: [UNRECOGNIZED DRUG - OTHER] IV SCH (17:00)
[2018-11-05] MEDS ORDERED: SMOF TPN IV SCH (17:00)
[2018-11-05] MEDS: ENOXAPARIN 40 MG/0.4 ML SQ SCH (18:04)
[2018-11-05 19:33] VITALS: BP 138/68
[2018-11-05] MEDS: MELATONIN 5 MG TABLET PO SCH (21:00)
[2018-11-05] MEDS: TRIHEXYPHENIDYL 2MG TABLET PO SCH (21:39)
[2018-11-06] VITALS (7 sets, daily range): BP systolic 104–148; BP diastolic 64–79
[2018-11-06] MEDS: MEROPENEM 1 GM in SODIUM CHLORIDE 0.9% 100 ML IV SCH ×3 (01:04→17:48)
[2018-11-06] MEDS: LORazepam 2 MG/ML, 1ML IVPush SCH ×4 (01:05→21:57)
[2018-11-06] MEDS: NITROGLYCERIN OINT 2%, 1GM TP SCH (03:35)
[2018-11-06] MEDS: LEVOTHYROXINE 50 MCG TABLET PO SCH (05:14)
[2018-11-06 06:29] LABS: ANION GAP 9 mmol/L (5-15); CALCIUM 9.4 mg/dL (8.5-10.1); CHLORIDE 111 mmol/L (98-107); CREATININE 0.96 mg/dL (0.55-1.02)
[2018-11-06] MEDS ORDERED: INSULIN REGULAR LOW DOSE QDAY SQ-INSULIN SCH (07:30)
[2018-11-06] MEDS ORDERED: SODIUM CHLORIDE 0.9%, 500ML IVBOLUS ONE (09:00)
[2018-11-06] MEDS: VITAMIN E 400 UNITS CAPSULE PO SCH (09:00)
[2018-11-06] MEDS: DOCUSATE 100 MG CAPSULE PO SCH ×2 (09:00→19:46)
[2018-11-06 09:03] LABS: BASOPHILS # (AUTO) 0.05 x10^3/uL (0-0.1); BASOPHILS % (AUTO) 0 % (0-1); EOSINOPHILS # (AUTO) 0.11 x10^3/uL (0-0.4); EOSINOPHILS % (AUTO) 1 % (1-7); LYMPHOCYTES # (AUTO) 2.28 x10^3/uL (1-3.4); LYMPHOCYTES % (AUTO) 16 % (22-44); MD NO; MEAN CORPUSCULAR HEMOGLOBIN 31.2 pg (27.0-34.8); MEAN CORPUSCULAR HGB CONC 33.3 g/dL (32.4-35.8); MEAN CORPUSCULAR VOLUME 93.7 fL (80-100); MEAN PLATELET VOLUME 8.7 fL (7.4-10.4); MONOCYTES # (AUTO) 1.22 x10^3/uL (0.2-0.8); MONOCYTES % (AUTO) 8 % (2-9); NEUTROPHILS # (AUTO) 10.82 x10^3/uL (1.8-6.8); NEUTROPHILS % (AUTO) 75 % (42-75); PLATELET COUNT 310 x10^3/uL (130-400); RED CELL DISTRIBUTION WIDTH 13.3 % (9.6-15.2)
[2018-11-06] MEDS: SODIUM CHLORIDE 0.9% 1,000 ML IV SCH ×2 (10:25→18:20)
[2018-11-06 12:13] LABS: MICROSCOPIC NOT IND
[2018-11-06 12:20] LABS: CULTURE INDICATED? NO
[2018-11-06 12:33] LABS: INTERNATIONAL NORMALIZED RATIO 1.01 (0.93-1.1); PROTHROMBIN TIME 10.6 Seconds (9.6-11.5)
--- NOTE | 2018-11-06 16:04 | NUR ---
- Recommend NPO with short term means of nutrition and hydration Agressive oral care Addendum: 11/06/18 at 1605 by TRENT DIANE Amended: Links added.
[2018-11-06] MEDS ORDERED: [UNRECOGNIZED DRUG - OTHER] IV SCH (17:00)
[2018-11-06] MEDS ORDERED: FILTER, DISP 1.2 MICRON FOR TPN/PVN IV PRN (17:00)
[2018-11-06] MEDS ORDERED: DEXTROSE 70% IV SCH (17:00)
[2018-11-06] MEDS ORDERED: FAT EMUL IV SCH (17:00)
[2018-11-06] MEDS ORDERED: SMOF TPN IV SCH (17:00)
[2018-11-06] MEDS ORDERED: AMINO ACID 10% IV SCH (17:00)
[2018-11-06] MEDS: ENOXAPARIN 40 MG/0.4 ML SQ SCH (17:48)
[2018-11-06] MEDS: TRIHEXYPHENIDYL 2MG TABLET PO SCH (19:46)
[2018-11-06] MEDS: MELATONIN 5 MG TABLET PO SCH (19:47)
[2018-11-07 01:10] VITALS: BP 107/65
[2018-11-07] MEDS: MEROPENEM 1 GM in SODIUM CHLORIDE 0.9% 100 ML IV SCH ×3 (01:16→18:18)
[2018-11-07] MEDS: SODIUM CHLORIDE 0.9% 1,000 ML IV SCH ×3 (05:01→18:09)
[2018-11-07] MEDS: LEVOTHYROXINE 50 MCG TABLET PO SCH (05:31)
[2018-11-07 06:33] LABS: BASOPHILS # (AUTO) 0.03 x10^3/uL (0-0.1); BASOPHILS % (AUTO) 0 % (0-1); EOSINOPHILS # (AUTO) 0.41 x10^3/uL (0-0.4); EOSINOPHILS % (AUTO) 4 % (1-7); LYMPHOCYTES # (AUTO) 1.95 x10^3/uL (1-3.4); LYMPHOCYTES % (AUTO) 21 % (22-44); MD NO; MEAN CORPUSCULAR HEMOGLOBIN 31.8 pg (27.0-34.8); MEAN CORPUSCULAR VOLUME 93.6 fL (80-100); MEAN PLATELET VOLUME 8.1 fL (7.4-10.4); MONOCYTES # (AUTO) 0.88 x10^3/uL (0.2-0.8); MONOCYTES % (AUTO) 9 % (2-9); NEUTROPHILS # (AUTO) 6.05 x10^3/uL (1.8-6.8); NEUTROPHILS % (AUTO) 65 % (42-75); PLATELET COUNT 245 x10^3/uL (130-400); RED BLOOD COUNT 3.75 x10^6/uL (3.82-5.3); RED CELL DISTRIBUTION WIDTH 13.2 % (9.6-15.2)
[2018-11-07 06:46] LABS: ALBUMIN 2.7 g/dL (3.4-5.0); ANION GAP 5 mmol/L (5-15); CALCIUM 8.4 mg/dL (8.5-10.1); CHLORIDE 117 mmol/L (98-107)
[2018-11-07 06:50] LABS: ALANINE AMINOTRANSFERASE 26 U/L (12-78); ALKALINE PHOSPHATASE 66 U/L (45-117); BILIRUBIN,TOTAL 0.7 mg/dL (0.2-1.0); CREATINE KINASE, TOTAL 370 U/L (26-192); CREATININE 0.78 mg/dL (0.55-1.02); TOTAL PROTEIN 5.7 g/dL (6.4-8.2)
[2018-11-07 07:26] VITALS: BP 136/77
[2018-11-07] MEDS: VITAMIN E 400 UNITS CAPSULE PO SCH (07:28)
[2018-11-07] MEDS: DOCUSATE 100 MG CAPSULE PO SCH (07:28)
[2018-11-07] MEDS: INSULIN REGULAR MEDIUM DOSE QDAY SQ-INSULIN SCH (07:29)
[2018-11-07] MEDS: LORazepam 2 MG/ML, 1ML IVPush SCH ×4 (08:35→20:53)
[2018-11-07] MEDS ORDERED: SODIUM CHLORIDE 0.9% 1,000 ML IV SCH (08:52)
[2018-11-07] MEDS ORDERED: PROPOFOL 10 MG/ML, 20ML ONE (10:38)
[2018-11-07] MEDS ORDERED: PHENYLEPHRINE 10 MG/ML ONE (10:38)
[2018-11-07] MEDS ORDERED: SUCCINYLCHOLINE 20 MG/ML, 10ML ONE (10:38)
[2018-11-07] MEDS: LEVOTHYROXINE 100 MCG INJ IVPush SCH (12:32)
[2018-11-07 13:07] VITALS: BP 126/70
[2018-11-07] MEDS ORDERED: LIDOCAINE-MPF 1%, 5ML ONE (13:38)
[2018-11-07] MEDS ORDERED: MIDAZOLAM 1 MG/ML, 2ML ONE ×2 (13:53→15:43)
[2018-11-07] MEDS ORDERED: FENTANYL PF 250 MCG/5ML ONE (13:53)
[2018-11-07] MEDS ORDERED: GADOBUTROL 10 MMOL/10 ML PFS ONE (14:46)
[2018-11-07] MEDS ORDERED: LORazepam 2 MG/ML, 1ML ONE (15:43)
[2018-11-07] MEDS ORDERED: ONDANSETRON 2MG/ML, 2ML IV PRN (16:00)
[2018-11-07] MEDS ORDERED: FENTANYL PF 100 MCG/2ML IV PRN (16:00)
[2018-11-07] MEDS ORDERED: MIDAZOLAM 1 MG/ML, 2ML IV PRN (16:00)
[2018-11-07] MEDS ORDERED: AMINO ACID 10% IV SCH (17:00)
[2018-11-07] MEDS ORDERED: FAT EMUL IV SCH (17:00)
[2018-11-07] MEDS ORDERED: SMOF TPN IV SCH (17:00)
[2018-11-07] MEDS ORDERED: [UNRECOGNIZED DRUG - OTHER] IV SCH (17:00)
[2018-11-07] MEDS ORDERED: PVN PER PHARMACY MC SCH (17:00)
[2018-11-07] MEDS ORDERED: FILTER, DISP 1.2 MICRON FOR TPN/PVN IV PRN (17:00)
[2018-11-07] MEDS ORDERED: DEXTROSE 70% IV SCH (17:00)
[2018-11-07 18:27] VITALS: BP 118/76
[2018-11-07] MEDS: ENOXAPARIN 40 MG/0.4 ML SQ SCH ×2 (18:30→18:31)
[2018-11-07 18:40] VITALS: BP 130/79
[2018-11-08 00:35] VITALS: BP 164/85
[2018-11-08] MEDS: MEROPENEM 1 GM in SODIUM CHLORIDE 0.9% 100 ML IV SCH ×3 (01:43→18:23)
[2018-11-08] MEDS: LORazepam 2 MG/ML, 1ML IVPush SCH ×4 (03:45→20:37)
[2018-11-08 05:36] LABS: BASOPHILS # (AUTO) 0.01 x10^3/uL (0-0.1); BASOPHILS % (AUTO) 0 % (0-1); EOSINOPHILS # (AUTO) 0.54 x10^3/uL (0-0.4); EOSINOPHILS % (AUTO) 7 % (1-7); LYMPHOCYTES # (AUTO) 1.77 x10^3/uL (1-3.4); LYMPHOCYTES % (AUTO) 22 % (22-44); MD NO; MEAN CORPUSCULAR HEMOGLOBIN 31.2 pg (27.0-34.8); MEAN CORPUSCULAR HGB CONC 33.2 g/dL (32.4-35.8); MEAN PLATELET VOLUME 8.7 fL (7.4-10.4); MONOCYTES # (AUTO) 0.62 x10^3/uL (0.2-0.8); MONOCYTES % (AUTO) 8 % (2-9); NEUTROPHILS # (AUTO) 5.33 x10^3/uL (1.8-6.8); NEUTROPHILS % (AUTO) 65 % (42-75); PLATELET COUNT 238 x10^3/uL (130-400); RED BLOOD COUNT 3.83 x10^6/uL (3.82-5.3); RED CELL DISTRIBUTION WIDTH 13.2 % (9.6-15.2)
[2018-11-08 05:45] LABS: ALANINE AMINOTRANSFERASE 30 U/L (12-78); ALBUMIN 2.7 g/dL (3.4-5.0); ANION GAP 7 mmol/L (5-15); CALCIUM 8.2 mg/dL (8.5-10.1); CHLORIDE 119 mmol/L (98-107); CREATININE 0.65 mg/dL (0.55-1.02)
[2018-11-08 05:47] LABS: ALKALINE PHOSPHATASE 68 U/L (45-117); BILIRUBIN,TOTAL 0.7 mg/dL (0.2-1.0); CREATINE KINASE, TOTAL 502 U/L (26-192); TOTAL PROTEIN 5.7 g/dL (6.4-8.2)
[2018-11-08 07:54] VITALS: BP 131/79
[2018-11-08] MEDS: INSULIN REGULAR MEDIUM DOSE QDAY SQ-INSULIN SCH (09:00)
[2018-11-08] MEDS ORDERED: SODIUM CHLORIDE 0.9% 1,000 ML IV SCH (09:30)
[2018-11-08] MEDS: LEVOTHYROXINE 100 MCG INJ IVPush SCH (09:54)
[2018-11-08 14:36] VITALS: BP 142/71
[2018-11-08] MEDS ORDERED: [UNRECOGNIZED DRUG - OTHER] IV SCH ×2 (17:00)
[2018-11-08] MEDS ORDERED: DEXTROSE 70% IV SCH ×2 (17:00)
[2018-11-08] MEDS ORDERED: AMINO ACID 10% IV SCH ×2 (17:00)
[2018-11-08] MEDS ORDERED: [UNRECOGNIZED DRUG - REMARK] MC ONE (17:00)
[2018-11-08] MEDS ORDERED: SMOF TPN IV SCH ×2 (17:00)
[2018-11-08] MEDS ORDERED: FAT EMUL IV SCH ×2 (17:00)
[2018-11-08] MEDS: FILTER, DISP 1.2 MICRON FOR TPN/PVN IV PRN (18:32)
[2018-11-08] MEDS: ENOXAPARIN 40 MG/0.4 ML SQ SCH (18:37)
[2018-11-08 19:28] VITALS: BP 155/75
[2018-11-09 02:11] VITALS: BP 159/96
[2018-11-09] MEDS: LORazepam 2 MG/ML, 1ML IVPush SCH ×4 (02:41→22:30)
[2018-11-09] MEDS: MEROPENEM 1 GM in SODIUM CHLORIDE 0.9% 100 ML IV SCH ×3 (02:41→17:21)
[2018-11-09 04:18] LABS: BASOPHILS # (AUTO) 0.03 x10^3/uL (0-0.1); BASOPHILS % (AUTO) 0 % (0-1); EOSINOPHILS # (AUTO) 0.38 x10^3/uL (0-0.4); EOSINOPHILS % (AUTO) 5 % (1-7); LYMPHOCYTES # (AUTO) 1.81 x10^3/uL (1-3.4); LYMPHOCYTES % (AUTO) 22 % (22-44); MD NO; MEAN CORPUSCULAR HEMOGLOBIN 31.6 pg (27.0-34.8); MEAN CORPUSCULAR HGB CONC 33.5 g/dL (32.4-35.8); MEAN CORPUSCULAR VOLUME 94.4 fL (80-100); MEAN PLATELET VOLUME 8.5 fL (7.4-10.4); MONOCYTES # (AUTO) 0.68 x10^3/uL (0.2-0.8); MONOCYTES % (AUTO) 8 % (2-9); NEUTROPHILS # (AUTO) 5.29 x10^3/uL (1.8-6.8); NEUTROPHILS % (AUTO) 65 % (42-75); PLATELET COUNT 259 x10^3/uL (130-400); RED BLOOD COUNT 4.18 x10^6/uL (3.82-5.3); RED CELL DISTRIBUTION WIDTH 12.9 % (9.6-15.2)
[2018-11-09 04:21] LABS: ALBUMIN 2.8 g/dL (3.4-5.0); ANION GAP 7 mmol/L (5-15); CALCIUM 8.5 mg/dL (8.5-10.1); CHLORIDE 114 mmol/L (98-107)
[2018-11-09 04:26] LABS: ALANINE AMINOTRANSFERASE 37 U/L (12-78); ALKALINE PHOSPHATASE 74 U/L (45-117); BILIRUBIN,TOTAL 0.5 mg/dL (0.2-1.0); CREATINE KINASE, TOTAL 346 U/L (26-192); TOTAL PROTEIN 6.1 g/dL (6.4-8.2)
[2018-11-09 07:14] VITALS: BP 138/86
[2018-11-09] MEDS: AMLODIPINE 5 MG TABLET PO SCH (08:31)
[2018-11-09] MEDS: INSULIN REGULAR MEDIUM DOSE QDAY SQ-INSULIN SCH (08:31)
[2018-11-09] MEDS: LEVOTHYROXINE 100 MCG INJ IVPush SCH (09:00)
[2018-11-09] MEDS: LORazepam 2 MG/ML, 1ML IVPush PRN ×3 (10:53→19:27)
--- NOTE | 2018-11-09 12:26 | NUR ---
REC: Pureed diet with thin liquids with 1:1 assist; swallow precautions (orange sheet) posted in room Addendum: 11/09/18 at 1226 by Nayla DIANE Amended: Links added.
[2018-11-09] MEDS ORDERED: FUROSEMIDE 40 MG/4 ML IV ONE (13:00)
[2018-11-09 15:33] VITALS: BP 184/101
[2018-11-09] MEDS ORDERED: AMINO ACID 10% IV SCH (17:00)
[2018-11-09] MEDS ORDERED: SMOF TPN IV SCH (17:00)
[2018-11-09] MEDS ORDERED: DEXTROSE 70% IV SCH (17:00)
[2018-11-09] MEDS ORDERED: [UNRECOGNIZED DRUG - OTHER] IV SCH (17:00)
[2018-11-09] MEDS ORDERED: FAT EMUL IV SCH (17:00)
[2018-11-09] MEDS: FILTER, DISP 1.2 MICRON FOR TPN/PVN IV PRN (17:22)
[2018-11-09] MEDS: ENOXAPARIN 40 MG/0.4 ML SQ SCH (17:27)
[2018-11-09 18:20] VITALS: BP 140/79
[2018-11-10] MEDS: LORazepam 2 MG/ML, 1ML IVPush PRN (00:43)
[2018-11-10 01:22] VITALS: BP 146/81
[2018-11-10] MEDS: MEROPENEM 1 GM in SODIUM CHLORIDE 0.9% 100 ML IV SCH ×3 (02:26→18:44)
[2018-11-10] MEDS: LORazepam 2 MG/ML, 1ML IVPush SCH ×4 (04:06→22:46)
[2018-11-10 05:33] LABS: BASOPHILS # (AUTO) 0.04 x10^3/uL (0-0.1); BASOPHILS % (AUTO) 0 % (0-1); EOSINOPHILS # (AUTO) 0.29 x10^3/uL (0-0.4); EOSINOPHILS % (AUTO) 3 % (1-7); LYMPHOCYTES # (AUTO) 1.28 x10^3/uL (1-3.4); LYMPHOCYTES % (AUTO) 13 % (22-44); MD NO; MEAN CORPUSCULAR HEMOGLOBIN 31.6 pg (27.0-34.8); MEAN CORPUSCULAR HGB CONC 33.7 g/dL (32.4-35.8); MEAN CORPUSCULAR VOLUME 93.7 fL (80-100); MEAN PLATELET VOLUME 8.5 fL (7.4-10.4); MONOCYTES # (AUTO) 0.75 x10^3/uL (0.2-0.8); MONOCYTES % (AUTO) 7 % (2-9); NEUTROPHILS # (AUTO) 7.88 x10^3/uL (1.8-6.8); NEUTROPHILS % (AUTO) 77 % (42-75); PLATELET COUNT 284 x10^3/uL (130-400); RED BLOOD COUNT 4.63 x10^6/uL (3.82-5.3)
[2018-11-10 05:40] LABS: CHLORIDE 111 mmol/L (98-107)
[2018-11-10 05:48] LABS: ANION GAP 7 mmol/L (5-15); CALCIUM 9.2 mg/dL (8.5-10.1); CREATINE KINASE, TOTAL 253 U/L (26-192); CREATININE 0.73 mg/dL (0.55-1.02)
[2018-11-10] MEDS: INSULIN REGULAR MEDIUM DOSE QDAY SQ-INSULIN SCH (08:17)
[2018-11-10] MEDS ORDERED: SODIUM CHLORIDE 0.9% 1,000 ML IV SCH (09:00)
[2018-11-10] MEDS: AMLODIPINE 5 MG TABLET PO SCH (09:00)
[2018-11-10 09:20] VITALS: BP 129/77
[2018-11-10] MEDS: LEVOTHYROXINE 100 MCG INJ IVPush SCH (10:34)
[2018-11-10] MEDS: SODIUM CHLORIDE 0.45% 1,000 ML IV SCH ×2 (10:36→21:14)
[2018-11-10 14:36] VITALS: BP 136/79
[2018-11-10] MEDS ORDERED: SMOF TPN IV SCH (17:00)
[2018-11-10] MEDS ORDERED: FAT EMUL IV SCH (17:00)
[2018-11-10] MEDS ORDERED: AMINO ACID 10% IV SCH (17:00)
[2018-11-10] MEDS ORDERED: DEXTROSE 70% IV SCH (17:00)
[2018-11-10] MEDS ORDERED: [UNRECOGNIZED DRUG - OTHER] IV SCH (17:00)
[2018-11-10 17:48] LABS: FIO2 ROOM AIR %
[2018-11-10 18:14] LABS: MICROSCOPIC AUTO
[2018-11-10 18:16] LABS: CULTURE INDICATED? NO
[2018-11-10] MEDS ORDERED: LORazepam 2 MG/ML, 1ML IVPush SCH (18:30)
[2018-11-10] MEDS: ENOXAPARIN 40 MG/0.4 ML SQ SCH (18:46)
[2018-11-10 20:01] VITALS: BP 177/96
[2018-11-10] MEDS: MEMANTINE 5MG TABLET PO SCH (21:00)
[2018-11-10 21:04] VITALS: BP 151/99
[2018-11-11 03:17] VITALS: BP 169/79
[2018-11-11 03:22] VITALS: BP 136/85
[2018-11-11] MEDS: MEROPENEM 1 GM in SODIUM CHLORIDE 0.9% 100 ML IV SCH ×3 (03:35→17:20)
[2018-11-11] MEDS: LORazepam 2 MG/ML, 1ML IVPush SCH ×3 (03:36→11:58)
[2018-11-11] MEDS: SODIUM CHLORIDE 0.45% 1,000 ML IV SCH ×2 (06:12→15:29)
[2018-11-11 06:22] LABS: BASOPHILS # (AUTO) 0.02 x10^3/uL (0-0.1); BASOPHILS % (AUTO) 0 % (0-1); EOSINOPHILS # (AUTO) 0.51 x10^3/uL (0-0.4); EOSINOPHILS % (AUTO) 4 % (1-7); LYMPHOCYTES # (AUTO) 1.81 x10^3/uL (1-3.4); LYMPHOCYTES % (AUTO) 14 % (22-44); MD NO; MEAN CORPUSCULAR HEMOGLOBIN 31.9 pg (27.0-34.8); MEAN CORPUSCULAR HGB CONC 33.8 g/dL (32.4-35.8); MEAN CORPUSCULAR VOLUME 94.2 fL (80-100); MEAN PLATELET VOLUME 9.1 fL (7.4-10.4); MONOCYTES # (AUTO) 0.85 x10^3/uL (0.2-0.8); MONOCYTES % (AUTO) 6 % (2-9); NEUTROPHILS # (AUTO) 10.21 x10^3/uL (1.8-6.8); NEUTROPHILS % (AUTO) 76 % (42-75); PLATELET COUNT 319 x10^3/uL (130-400); RED BLOOD COUNT 4.71 x10^6/uL (3.82-5.3); RED CELL DISTRIBUTION WIDTH 13.5 % (9.6-15.2)
[2018-11-11 06:28] LABS: ANION GAP 8 mmol/L (5-15); CHLORIDE 112 mmol/L (98-107)
[2018-11-11 06:34] LABS: CREATINE KINASE, TOTAL 179 U/L (26-192); CREATININE 0.71 mg/dL (0.55-1.02)
[2018-11-11] MEDS: MEMANTINE 5MG TABLET PO SCH ×2 (07:49→20:18)
[2018-11-11] MEDS: AMLODIPINE 5 MG TABLET PO SCH (07:49)
[2018-11-11 11:05] VITALS: BP 145/82
[2018-11-11] MEDS: LEVOTHYROXINE 100 MCG INJ IVPush SCH (11:27)
[2018-11-11 15:02] VITALS: BP 145/89
[2018-11-11] MEDS ORDERED: LORazepam 2 MG/ML, 1ML IVPush SCH ×2 (15:30→18:30)
--- NOTE | 2018-11-11 17:02 | NUR ---
REC: Strict NPO with PEG Addendum: 11/11/18 at 1702 by Nayla DIANE Amended: Links added.
[2018-11-11] MEDS: ENOXAPARIN 40 MG/0.4 ML SQ SCH (18:38)
[2018-11-11] MEDS: DIAZEPAM 5 MG/ML, 10ML VIAL IV SCH ×2 (20:38→22:46)
[2018-11-11] MEDS: hydrALAzine 20 MG/ML, 1ML IV PRN (22:53)
[2018-11-11] MEDS ORDERED: FENTANYL PF 100 MCG/2ML ONE (23:54)
[2018-11-12] MEDS ORDERED: FENTANYL PF 100 MCG/2ML IVPush PRN
[2018-11-12] MEDS: MEROPENEM 1 GM in SODIUM CHLORIDE 0.9% 100 ML IV SCH ×2 (03:13→11:14)
[2018-11-12 04:15] VITALS: BP 100/58
[2018-11-12] MEDS: DIAZEPAM 5 MG/ML, 10ML VIAL IV SCH ×6 (04:26→23:53)
[2018-11-12 05:47] LABS: BASOPHILS # (AUTO) 0.03 x10^3/uL (0-0.1); BASOPHILS % (AUTO) 0 % (0-1); EOSINOPHILS # (AUTO) 0.27 x10^3/uL (0-0.4); EOSINOPHILS % (AUTO) 2 % (1-7); LYMPHOCYTES # (AUTO) 1.92 x10^3/uL (1-3.4); LYMPHOCYTES % (AUTO) 17 % (22-44); MD NO; MEAN CORPUSCULAR HEMOGLOBIN 31.6 pg (27.0-34.8); MEAN CORPUSCULAR HGB CONC 33.5 g/dL (32.4-35.8); MEAN CORPUSCULAR VOLUME 94.2 fL (80-100); MEAN PLATELET VOLUME 8.6 fL (7.4-10.4); MONOCYTES # (AUTO) 1.06 x10^3/uL (0.2-0.8); MONOCYTES % (AUTO) 9 % (2-9); NEUTROPHILS # (AUTO) 8.24 x10^3/uL (1.8-6.8); NEUTROPHILS % (AUTO) 72 % (42-75); PLATELET COUNT 317 x10^3/uL (130-400); RED BLOOD COUNT 4.72 x10^6/uL (3.82-5.3); RED CELL DISTRIBUTION WIDTH 13.6 % (9.6-15.2)
[2018-11-12 05:56] LABS: ANION GAP 9 mmol/L (5-15); CALCIUM 9.2 mg/dL (8.5-10.1); CHLORIDE 113 mmol/L (98-107); CREATININE 0.71 mg/dL (0.55-1.02)
[2018-11-12] MEDS: SODIUM CHLORIDE 0.45% 1,000 ML IV SCH (07:13)
[2018-11-12] MEDS: AMLODIPINE 5 MG TABLET PO SCH (09:00)
[2018-11-12] MEDS: MEMANTINE 5MG TABLET PO SCH ×2 (09:00→20:41)
[2018-11-12] MEDS ORDERED: TPN PER PHARMACY MC PRN (10:30)
[2018-11-12] MEDS ORDERED: DEXTROSE 10% 500 ML IV PRN (11:00)
[2018-11-12] MEDS: CEFTRIAXONE PMX 1GM/50ML 50 ML IV SCH (13:55)
[2018-11-12] MEDS: METRONIDAZOLE PMX 500MG/100ML 100 ML IV SCH ×2 (13:56→20:57)
[2018-11-12] MEDS: hydrALAzine 20 MG/ML, 1ML IV PRN (15:40)
[2018-11-12] MEDS ORDERED: AMINO ACID 10% IV SCH (17:00)
[2018-11-12] MEDS ORDERED: DEXTROSE 50%, 50ML SYRINGE IVPush PRN (17:00)
[2018-11-12] MEDS ORDERED: DEXTROSE 70% IV SCH (17:00)
[2018-11-12] MEDS ORDERED: SMOF TPN IV SCH (17:00)
[2018-11-12] MEDS ORDERED: FAT EMUL IV SCH (17:00)
[2018-11-12] MEDS ORDERED: [UNRECOGNIZED DRUG - OTHER] IV SCH (17:00)
[2018-11-12] MEDS: ENOXAPARIN 40 MG/0.4 ML SQ SCH (18:45)
[2018-11-12] MEDS ORDERED: SODIUM CHLORIDE 0.45% 1,000 ML IV SCH (20:00)
[2018-11-12] MEDS: INSULIN REGULAR LOW DOSE Q6H X 48HRS SQ-INSULIN SCH (20:57)
[2018-11-13] MEDS: INSULIN REGULAR LOW DOSE Q6H X 48HRS SQ-INSULIN SCH ×3 (03:00→15:56)
[2018-11-13] MEDS: DIAZEPAM 5 MG/ML, 10ML VIAL IV SCH ×5 (03:01→19:46)
[2018-11-13] MEDS: METRONIDAZOLE PMX 500MG/100ML 100 ML IV SCH ×3 (04:23→19:46)
[2018-11-13 04:42] LABS: ANION GAP 7 mmol/L (5-15); CALCIUM 8.7 mg/dL (8.5-10.1); CHLORIDE 118 mmol/L (98-107); CREATININE 0.64 mg/dL (0.55-1.02); TRIGLYCERIDES 89 mg/dL (50-200)
[2018-11-13 04:45] LABS: PREALBUMIN 25.6 mg/dL (20.0-40.0)
[2018-11-13] MEDS: MEMANTINE 5MG TABLET PO SCH ×2 (09:00→19:48)
[2018-11-13] MEDS: LEVOTHYROXINE 100 MCG INJ IVPush SCH (09:09)
[2018-11-13] MEDS ORDERED: ZIPRASIDONE 20 MG INJ IM SCH (10:00)
[2018-11-13] MEDS: CEFTRIAXONE PMX 1GM/50ML 50 ML IV SCH (10:57)
[2018-11-13] MEDS ORDERED: PVN PER PHARMACY MC SCH (17:00)
[2018-11-13] MEDS ORDERED: [UNRECOGNIZED DRUG - OTHER] IV SCH (17:00)
[2018-11-13] MEDS ORDERED: DEXTROSE 70% IV SCH ×2 (17:00)
[2018-11-13] MEDS ORDERED: FAT EMUL IV SCH ×2 (17:00)
[2018-11-13] MEDS ORDERED: AMINO ACID 10% IV SCH ×2 (17:00)
[2018-11-13] MEDS ORDERED: SMOF TPN IV SCH ×2 (17:00)
[2018-11-13] MEDS ORDERED: [UNRECOGNIZED DRUG - OTHER] IV SCH (17:00)
[2018-11-13] MEDS: ENOXAPARIN 40 MG/0.4 ML SQ SCH (18:10)
[2018-11-13] MEDS: INSULIN REGULAR LOW DOSE QDAY SQ-INSULIN SCH (21:00)
[2018-11-14] MEDS: DIAZEPAM 5 MG/ML, 10ML VIAL IV SCH ×6 (00:01→20:49)
[2018-11-14] MEDS: METRONIDAZOLE PMX 500MG/100ML 100 ML IV SCH ×3 (03:58→20:49)
[2018-11-14 04:41] LABS: BASOPHILS # (AUTO) 0.02 x10^3/uL (0-0.1); BASOPHILS % (AUTO) 0 % (0-1); EOSINOPHILS # (AUTO) 0.33 x10^3/uL (0-0.4); EOSINOPHILS % (AUTO) 5 % (1-7); LYMPHOCYTES % (AUTO) 18 % (22-44); MD NO; MEAN CORPUSCULAR HEMOGLOBIN 31.8 pg (27.0-34.8); MEAN CORPUSCULAR HGB CONC 33.8 g/dL (32.4-35.8); MEAN CORPUSCULAR VOLUME 94.1 fL (80-100); MEAN PLATELET VOLUME 8.6 fL (7.4-10.4); MONOCYTES # (AUTO) 0.73 x10^3/uL (0.2-0.8); MONOCYTES % (AUTO) 10 % (2-9); NEUTROPHILS # (AUTO) 4.79 x10^3/uL (1.8-6.8); NEUTROPHILS % (AUTO) 67 % (42-75); PLATELET COUNT 247 x10^3/uL (130-400); RED BLOOD COUNT 4.01 x10^6/uL (3.82-5.3); RED CELL DISTRIBUTION WIDTH 13.8 % (9.6-15.2)
[2018-11-14 04:49] LABS: ALANINE AMINOTRANSFERASE 44 U/L (12-78); ALBUMIN 2.8 g/dL (3.4-5.0); ANION GAP 7 mmol/L (5-15); CALCIUM 8.4 mg/dL (8.5-10.1); CHLORIDE 115 mmol/L (98-107); CREATININE 0.59 mg/dL (0.55-1.02)
[2018-11-14 04:51] LABS: ALKALINE PHOSPHATASE 83 U/L (45-117); BILIRUBIN,TOTAL 0.5 mg/dL (0.2-1.0); TOTAL PROTEIN 5.7 g/dL (6.4-8.2)
[2018-11-14] MEDS: MEMANTINE 5MG TABLET PO SCH ×2 (09:00→20:50)
[2018-11-14] MEDS: LEVOTHYROXINE 100 MCG INJ IVPush SCH (10:33)
[2018-11-14] MEDS: CEFTRIAXONE PMX 1GM/50ML 50 ML IV SCH (12:20)
[2018-11-14] MEDS ORDERED: DEXTROSE 70% IV SCH (17:00)
[2018-11-14] MEDS ORDERED: [UNRECOGNIZED DRUG - OTHER] IV SCH (17:00)
[2018-11-14] MEDS ORDERED: SMOF TPN IV SCH (17:00)
[2018-11-14] MEDS ORDERED: FAT EMUL IV SCH (17:00)
[2018-11-14] MEDS ORDERED: AMINO ACID 10% IV SCH (17:00)
[2018-11-14] MEDS: FILTER, DISP 1.2 MICRON FOR TPN/PVN IV PRN (17:03)
[2018-11-14] MEDS: ENOXAPARIN 40 MG/0.4 ML SQ SCH (18:47)
[2018-11-14] MEDS: INSULIN REGULAR LOW DOSE QDAY SQ-INSULIN SCH (20:53)
[2018-11-14] MEDS ORDERED: INSULIN REGULAR LOW DOSE QDAY SQ-INSULIN SCH (21:00)
[2018-11-15] MEDS: DIAZEPAM 5 MG/ML, 10ML VIAL IV SCH ×6 (00:01→20:23)
[2018-11-15] MEDS: hydrALAzine 20 MG/ML, 1ML IV PRN (02:08)
[2018-11-15] MEDS: METRONIDAZOLE PMX 500MG/100ML 100 ML IV SCH (03:58)
[2018-11-15 04:55] LABS: ANION GAP 6 mmol/L (5-15); CALCIUM 9.1 mg/dL (8.5-10.1); CHLORIDE 114 mmol/L (98-107)
[2018-11-15 04:56] LABS: CREATININE 0.65 mg/dL (0.55-1.02)
[2018-11-15] MEDS: LEVOTHYROXINE 100 MCG INJ IVPush SCH (07:58)
[2018-11-15] MEDS: MEMANTINE 5MG TABLET PO SCH ×2 (08:03→20:29)
[2018-11-15] MEDS ORDERED: [UNRECOGNIZED DRUG - OTHER] IV SCH (17:00)
[2018-11-15] MEDS ORDERED: DEXTROSE 70% IV SCH (17:00)
[2018-11-15] MEDS ORDERED: SMOF TPN IV SCH (17:00)
[2018-11-15] MEDS ORDERED: AMINO ACID 10% IV SCH (17:00)
[2018-11-15] MEDS ORDERED: FAT EMUL IV SCH (17:00)
[2018-11-15 17:21] LABS: FREE T4 (FREE THYROXINE) 1.36 ng/dL (0.76-1.46); THYROID STIMULATING HORMONE 0.837 mIU/L (0.358-3.740)
[2018-11-15] MEDS: FILTER, DISP 1.2 MICRON FOR TPN/PVN IV PRN (18:07)
[2018-11-15] MEDS: ENOXAPARIN 40 MG/0.4 ML SQ SCH (18:07)
[2018-11-15] MEDS: INSULIN REGULAR LOW DOSE QDAY SQ-INSULIN SCH (20:29)
[2018-11-16] MEDS: DIAZEPAM 5 MG/ML, 10ML VIAL IV SCH ×6 (04:09→19:59)
[2018-11-16 04:50] LABS: ANION GAP 6 mmol/L (5-15); CALCIUM 9.5 mg/dL (8.5-10.1); CHLORIDE 115 mmol/L (98-107); CREATININE 0.67 mg/dL (0.55-1.02)
[2018-11-16] MEDS: LEVOTHYROXINE 100 MCG INJ IVPush SCH (08:43)
[2018-11-16] MEDS: MEMANTINE 5MG TABLET PO SCH ×2 (08:43→19:59)
[2018-11-16] MEDS ORDERED: FAT EMUL IV SCH (17:00)
[2018-11-16] MEDS ORDERED: SMOF TPN IV SCH (17:00)
[2018-11-16] MEDS ORDERED: DEXTROSE 70% IV SCH (17:00)
[2018-11-16] MEDS ORDERED: [UNRECOGNIZED DRUG - OTHER] IV SCH (17:00)
[2018-11-16] MEDS ORDERED: AMINO ACID 10% IV SCH (17:00)
[2018-11-16] MEDS: FILTER, DISP 1.2 MICRON FOR TPN/PVN IV PRN (17:34)
[2018-11-16] MEDS: ENOXAPARIN 40 MG/0.4 ML SQ SCH (17:34)
[2018-11-16] MEDS: INSULIN REGULAR LOW DOSE QDAY SQ-INSULIN SCH (21:00)
[2018-11-17] MEDS: DIAZEPAM 5 MG/ML, 10ML VIAL IV SCH ×6 (00:06→20:49)
[2018-11-17 04:48] LABS: ANION GAP 7 mmol/L (5-15); CALCIUM 9.5 mg/dL (8.5-10.1); CHLORIDE 114 mmol/L (98-107)
[2018-11-17 04:51] LABS: CREATININE 0.68 mg/dL (0.55-1.02)
[2018-11-17] MEDS: MEMANTINE 5MG TABLET PO SCH ×2 (08:39→20:53)
[2018-11-17] MEDS: LEVOTHYROXINE 100 MCG INJ IVPush SCH (08:45)
[2018-11-17] MEDS: FILTER, DISP 1.2 MICRON FOR TPN/PVN IV PRN (16:27)
[2018-11-17] MEDS ORDERED: AMINO ACID 10% IV SCH (17:00)
[2018-11-17] MEDS ORDERED: FAT EMUL IV SCH (17:00)
[2018-11-17] MEDS ORDERED: DEXTROSE 70% IV SCH (17:00)
[2018-11-17] MEDS ORDERED: [UNRECOGNIZED DRUG - OTHER] IV SCH (17:00)
[2018-11-17] MEDS ORDERED: SMOF TPN IV SCH (17:00)
[2018-11-17] MEDS: hydrALAzine 20 MG/ML, 1ML IV PRN (17:11)
[2018-11-17] MEDS: ENOXAPARIN 40 MG/0.4 ML SQ SCH (18:15)
[2018-11-17] MEDS: INSULIN REGULAR LOW DOSE QDAY SQ-INSULIN SCH (21:03)
[2018-11-17] MEDS: SODIUM CHLORIDE 0.45% 1,000 ML IV SCH (23:19)
[2018-11-18] MEDS: DIAZEPAM 5 MG/ML, 10ML VIAL IV SCH ×6 (00:32→20:07)
[2018-11-18 04:51] LABS: CHLORIDE 112 mmol/L (98-107)
[2018-11-18 05:02] LABS: ALANINE AMINOTRANSFERASE 69 U/L (12-78); ALBUMIN 3.1 g/dL (3.4-5.0); ALKALINE PHOSPHATASE 99 U/L (45-117); ANION GAP 5 mmol/L (5-15); BILIRUBIN,TOTAL 0.7 mg/dL (0.2-1.0); CALCIUM 9.4 mg/dL (8.5-10.1); CREATININE 0.69 mg/dL (0.55-1.02); TOTAL PROTEIN 6.4 g/dL (6.4-8.2)
[2018-11-18] MEDS: LEVOTHYROXINE 100 MCG INJ IVPush SCH (08:51)
[2018-11-18] MEDS: MEMANTINE 5MG TABLET PO SCH ×2 (08:51→19:09)
[2018-11-18 11:14] LABS: CLOSTRIDIUM DIFFICILE ANTIGEN NEGATIVE; CLOSTRIDIUM DIFFICILE TOXIN NEGATIVE (Negative)
[2018-11-18] MEDS: chlorPROMAZINE 25 MG/ML, 1ML IM SCH ×2 (16:03→21:49)
[2018-11-18] MEDS: FILTER, DISP 1.2 MICRON FOR TPN/PVN IV PRN (16:38)
[2018-11-18] MEDS ORDERED: [UNRECOGNIZED DRUG - OTHER] IV SCH (17:00)
[2018-11-18] MEDS ORDERED: AMINO ACID 10% IV SCH (17:00)
[2018-11-18] MEDS ORDERED: SMOF TPN IV SCH (17:00)
[2018-11-18] MEDS ORDERED: DEXTROSE 70% IV SCH (17:00)
[2018-11-18] MEDS ORDERED: FAT EMUL IV SCH (17:00)
[2018-11-18] MEDS: ENOXAPARIN 40 MG/0.4 ML SQ SCH (18:48)
[2018-11-18] MEDS: INSULIN REGULAR LOW DOSE QDAY SQ-INSULIN SCH (20:51)
[2018-11-19] MEDS: DIAZEPAM 5 MG/ML, 10ML VIAL IV SCH ×6 (01:45→23:29)
[2018-11-19 05:18] LABS: ALBUMIN 3.1 g/dL (3.4-5.0); ANION GAP 6 mmol/L (5-15); CALCIUM 9.5 mg/dL (8.5-10.1); CHLORIDE 113 mmol/L (98-107)
[2018-11-19 05:27] LABS: ALANINE AMINOTRANSFERASE 74 U/L (12-78); ALKALINE PHOSPHATASE 99 U/L (45-117); BILIRUBIN,TOTAL 0.7 mg/dL (0.2-1.0); TOTAL PROTEIN 6.6 g/dL (6.4-8.2)
[2018-11-19 05:31] LABS: BASOPHILS # (AUTO) 0.04 x10^3/uL (0-0.1); BASOPHILS % (AUTO) 1 % (0-1); EOSINOPHILS # (AUTO) 0.59 x10^3/uL (0-0.4); EOSINOPHILS % (AUTO) 7 % (1-7); LYMPHOCYTES # (AUTO) 1.76 x10^3/uL (1-3.4); LYMPHOCYTES % (AUTO) 22 % (22-44); MD SCAN; MEAN CORPUSCULAR HEMOGLOBIN 31.4 pg (27.0-34.8); MEAN CORPUSCULAR HGB CONC 33.2 g/dL (32.4-35.8); MEAN CORPUSCULAR VOLUME 94.6 fL (80-100); MEAN PLATELET VOLUME 8.8 fL (7.4-10.4); MONOCYTES # (AUTO) 0.64 x10^3/uL (0.2-0.8); MONOCYTES % (AUTO) 8 % (2-9); NEUTROPHILS # (AUTO) 5.18 x10^3/uL (1.8-6.8); NEUTROPHILS % (AUTO) 63 % (42-75); PLATELET COUNT 268 x10^3/uL (130-400); RED BLOOD COUNT 4.57 x10^6/uL (3.82-5.3); RED CELL DISTRIBUTION WIDTH 13.7 % (9.6-15.2)
[2018-11-19] MEDS: MEMANTINE 5MG TABLET PO SCH (09:00)
[2018-11-19] MEDS: LEVOTHYROXINE 100 MCG INJ IVPush SCH (09:55)
[2018-11-19] MEDS: chlorPROMAZINE 25 MG/ML, 1ML IM SCH (09:56)
[2018-11-19] MEDS: FILTER, DISP 1.2 MICRON FOR TPN/PVN IV PRN (16:27)
[2018-11-19] MEDS: SODIUM CHLORIDE 0.45% 1,000 ML IV SCH (16:30)
[2018-11-19] MEDS ORDERED: [UNRECOGNIZED DRUG - OTHER] IV SCH (17:00)
[2018-11-19] MEDS ORDERED: AMINO ACID 10% IV SCH (17:00)
[2018-11-19] MEDS ORDERED: SMOF TPN IV SCH (17:00)
[2018-11-19] MEDS ORDERED: DEXTROSE 70% IV SCH (17:00)
[2018-11-19] MEDS ORDERED: FAT EMUL IV SCH (17:00)
[2018-11-19] MEDS: ENOXAPARIN 40 MG/0.4 ML SQ SCH (17:55)
[2018-11-19] MEDS: QUETIAPINE 200 MG TABLET PO SCH (19:18)
[2018-11-19] MEDS: TIZANIDINE 4MG TABLET PO SCH (19:18)
[2018-11-19] MEDS: INSULIN REGULAR LOW DOSE QDAY SQ-INSULIN SCH (19:49)
[2018-11-19] MEDS ORDERED: DIAZEPAM 5 MG/ML, 10ML VIAL IV SCH (20:00)
[2018-11-20] MEDS: DIAZEPAM 5 MG/ML, 10ML VIAL IV SCH ×5 (03:52→20:31)
[2018-11-20 04:31] LABS: ANION GAP 6 mmol/L (5-15); CALCIUM 9.2 mg/dL (8.5-10.1); CHLORIDE 111 mmol/L (98-107); CREATININE 0.64 mg/dL (0.55-1.02)
[2018-11-20] MEDS: TIZANIDINE 4MG TABLET PO SCH ×2 (09:00→20:32)
[2018-11-20] MEDS: QUETIAPINE 200 MG TABLET PO SCH ×2 (09:00→20:31)
[2018-11-20] MEDS: LEVOTHYROXINE 100 MCG INJ IVPush SCH (09:31)
[2018-11-20] MEDS ORDERED: FAT EMUL IV SCH (17:00)
[2018-11-20] MEDS ORDERED: SMOF TPN IV SCH (17:00)
[2018-11-20] MEDS ORDERED: DEXTROSE 70% IV SCH (17:00)
[2018-11-20] MEDS ORDERED: [UNRECOGNIZED DRUG - OTHER] IV SCH (17:00)
[2018-11-20] MEDS ORDERED: AMINO ACID 10% IV SCH (17:00)
[2018-11-20] MEDS: FILTER, DISP 1.2 MICRON FOR TPN/PVN IV PRN (18:02)
[2018-11-20] MEDS: ENOXAPARIN 40 MG/0.4 ML SQ SCH (20:31)
[2018-11-20] MEDS: INSULIN REGULAR LOW DOSE QDAY SQ-INSULIN SCH (20:40)
[2018-11-21] MEDS: DIAZEPAM 5 MG/ML, 10ML VIAL IV SCH ×3 (00:23→09:02)
[2018-11-21 06:30] LABS: ALANINE AMINOTRANSFERASE 254 U/L (12-78); ALBUMIN 3.1 g/dL (3.4-5.0); ANION GAP 7 mmol/L (5-15); CALCIUM 9.3 mg/dL (8.5-10.1); CHLORIDE 109 mmol/L (98-107); CREATININE 0.76 mg/dL (0.55-1.02)
[2018-11-21 06:34] LABS: ALKALINE PHOSPHATASE 264 U/L (45-117); PREALBUMIN 28.8 mg/dL (20.0-40.0); TRIGLYCERIDES 143 mg/dL (50-200)
[2018-11-21] MEDS: QUETIAPINE 200 MG TABLET PO SCH ×2 (08:47→20:05)
[2018-11-21] MEDS: TIZANIDINE 4MG TABLET PO SCH (08:47)
[2018-11-21] MEDS: LEVOTHYROXINE 100 MCG INJ IVPush SCH (09:00)
[2018-11-21] MEDS ORDERED: MORPHINE SULFATE 4 MG/ML, 1ML IVPush PRN (09:00)
[2018-11-21 09:29] LABS: THYROID STIMULATING HORMONE 0.674 mIU/L (0.358-3.740)
[2018-11-21 09:43] LABS: MICROSCOPIC INDICATED
[2018-11-21 10:05] LABS: CULTURE INDICATED? YES
[2018-11-21] MEDS ORDERED: PHARMACY INSTRUCTION MC PRN ×2 (10:30)
[2018-11-21] MEDS: LORazepam 2 MG/ML, 1ML IV SCH ×3 (13:46→20:04)
[2018-11-21] MEDS ORDERED: [UNRECOGNIZED DRUG - OTHER] IV SCH (17:00)
[2018-11-21] MEDS ORDERED: DEXTROSE 70% IV SCH (17:00)
[2018-11-21] MEDS ORDERED: SMOF TPN IV SCH (17:00)
[2018-11-21] MEDS ORDERED: FAT EMUL IV SCH (17:00)
[2018-11-21] MEDS ORDERED: AMINO ACID 10% IV SCH (17:00)
[2018-11-21] MEDS: FILTER, DISP 1.2 MICRON FOR TPN/PVN IV PRN (17:40)
[2018-11-21] MEDS: ENOXAPARIN 40 MG/0.4 ML SQ SCH (20:04)
[2018-11-21] MEDS: INSULIN REGULAR LOW DOSE QDAY SQ-INSULIN SCH (20:11)
[2018-11-21] MEDS ORDERED: LITHIUM CARBONATE 150 MG CAPSULE NG SCH (21:00)
[2018-11-22] MEDS: LORazepam 2 MG/ML, 1ML IV SCH ×6 (01:09→21:20)
[2018-11-22 04:50] LABS: ALKALINE PHOSPHATASE 261 U/L (45-117); BILIRUBIN,TOTAL 0.5 mg/dL (0.2-1.0); MEAN CORPUSCULAR HEMOGLOBIN 31.4 pg (27.0-34.8); MEAN CORPUSCULAR HGB CONC 33.8 g/dL (32.4-35.8); MEAN CORPUSCULAR VOLUME 92.9 fL (80-100); MEAN PLATELET VOLUME 9.4 fL (7.4-10.4); PLATELET COUNT 220 x10^3/uL (130-400); RED BLOOD COUNT 3.95 x10^6/uL (3.82-5.3); RED CELL DISTRIBUTION WIDTH 13.7 % (9.6-15.2); TOTAL PROTEIN 6.2 g/dL (6.4-8.2)
[2018-11-22 04:51] LABS: ALANINE AMINOTRANSFERASE 245 U/L (12-78); ALBUMIN 2.6 g/dL (3.4-5.0); ANION GAP 7 mmol/L (5-15); CALCIUM 8.9 mg/dL (8.5-10.1); CHLORIDE 110 mmol/L (98-107); CREATININE 0.64 mg/dL (0.55-1.02)
[2018-11-22 05:57] LABS: MD YES
[2018-11-22 05:59] LABS: <PLATELET ESTIMATE> ADEQUATE; <PLT MORPHOLOGY> NORMAL PLT MORPH; <RBC MORPHOLOGY> NORMAL; BAND#(MANUAL) 0.07 x10^3/uL; BANDS%(MANUAL) 1 % (0-7); EOS% (MANUAL) 6 % (1-7); LYMPH#(MANUAL) 0.92 x10^3/uL (1-3.4); LYMPHS% (MANUAL) 14 % (22-44); MONOS#(MANUAL) 0.66 x10^3/uL (0.3-2.7); MONOS% (MANUAL) 10 % (2-9); SEG#(MANUAL) 4.55 x10^3/uL (1.8-6.8); SEGS% (MANUAL) 69 % (42-75)
[2018-11-22] MEDS ORDERED: LITHIUM CARBONATE 150 MG CAPSULE NG SCH ×2 (07:19→09:00)
[2018-11-22] MEDS: LEVOTHYROXINE 100 MCG INJ IVPush SCH (09:00)
[2018-11-22] MEDS: QUETIAPINE 200 MG TABLET PO SCH (09:00)
[2018-11-22] MEDS ORDERED: VANCOMYCIN PER PHARMACY MC PRN (10:00)
[2018-11-22] MEDS ORDERED: PHARMACOKINETIC CONSULTATION MC ONE (10:30)
[2018-11-22] MEDS ORDERED: VANCOMYCIN PMX 1GM/200ML 200 ML IV ONE (10:30)
[2018-11-22] MEDS ORDERED: PHARMACOKINETIC MONITORING MC PRN (10:30)
[2018-11-22] MEDS: VANCOMYCIN 1,500 MG in SODIUM CHLORIDE 0.9% 250 ML IV SCH (11:40)
[2018-11-22] MEDS ORDERED: DEXTROSE 70% IV SCH (17:00)
[2018-11-22] MEDS ORDERED: FAT EMUL IV SCH (17:00)
[2018-11-22] MEDS ORDERED: [UNRECOGNIZED DRUG - OTHER] IV SCH (17:00)
[2018-11-22] MEDS ORDERED: AMINO ACID 10% IV SCH (17:00)
[2018-11-22] MEDS ORDERED: SMOF TPN IV SCH (17:00)
[2018-11-22] MEDS: FILTER, DISP 1.2 MICRON FOR TPN/PVN IV PRN (17:35)
[2018-11-22] MEDS: SODIUM CHLORIDE 0.45% 1,000 ML IV SCH (17:42)
[2018-11-22] MEDS: LINEZOLID PMX 600MG/300ML 300 ML IV SCH (18:27)
[2018-11-22] MEDS: ENOXAPARIN 40 MG/0.4 ML SQ SCH (19:32)
[2018-11-23] MEDS: LORazepam 2 MG/ML, 1ML IV SCH ×6 (01:47→20:18)
[2018-11-23] MEDS: VANCOMYCIN 1,500 MG in SODIUM CHLORIDE 0.9% 250 ML IV SCH ×2 (04:45→22:58)
[2018-11-23] MEDS: INSULIN REGULAR 100 UNITS/ML, 3ML VIAL SQ-INSULIN SCH (05:00)
[2018-11-23 05:39] LABS: BASOPHILS # (AUTO) 0.02 x10^3/uL (0-0.1); BASOPHILS % (AUTO) 0 % (0-1); EOSINOPHILS # (AUTO) 0.65 x10^3/uL (0-0.4); EOSINOPHILS % (AUTO) 9 % (1-7); LYMPHOCYTES # (AUTO) 1.89 x10^3/uL (1-3.4); LYMPHOCYTES % (AUTO) 25 % (22-44); MD NO; MEAN CORPUSCULAR HEMOGLOBIN 31.5 pg (27.0-34.8); MEAN CORPUSCULAR HGB CONC 33.9 g/dL (32.4-35.8); MEAN CORPUSCULAR VOLUME 92.8 fL (80-100); MEAN PLATELET VOLUME 8.8 fL (7.4-10.4); MONOCYTES % (AUTO) 16 % (2-9); NEUTROPHILS # (AUTO) 3.83 x10^3/uL (1.8-6.8); NEUTROPHILS % (AUTO) 50 % (42-75); PLATELET COUNT 247 x10^3/uL (130-400); RED BLOOD COUNT 4.27 x10^6/uL (3.82-5.3); RED CELL DISTRIBUTION WIDTH 13.9 % (9.6-15.2)
[2018-11-23 05:52] LABS: ALBUMIN 2.8 g/dL (3.4-5.0); ANION GAP 7 mmol/L (5-15); CALCIUM 9.3 mg/dL (8.5-10.1); CHLORIDE 108 mmol/L (98-107)
[2018-11-23 05:56] LABS: ALANINE AMINOTRANSFERASE 188 U/L (12-78); ALKALINE PHOSPHATASE 269 U/L (45-117); BILIRUBIN,TOTAL 0.5 mg/dL (0.2-1.0); CREATINE KINASE, TOTAL 162 U/L (26-192); CREATININE 0.68 mg/dL (0.55-1.02); TOTAL PROTEIN 7.2 g/dL (6.4-8.2)
[2018-11-23] MEDS: LINEZOLID PMX 600MG/300ML 300 ML IV SCH ×2 (08:25→20:17)
[2018-11-23] MEDS: LEVOTHYROXINE 100 MCG INJ IVPush SCH (08:31)
[2018-11-23] MEDS ORDERED: FAT EMUL IV SCH (17:00)
[2018-11-23] MEDS ORDERED: SMOF TPN IV SCH (17:00)
[2018-11-23] MEDS ORDERED: AMINO ACID 10% IV SCH (17:00)
[2018-11-23] MEDS ORDERED: [UNRECOGNIZED DRUG - OTHER] IV SCH (17:00)
[2018-11-23] MEDS ORDERED: DEXTROSE 70% IV SCH (17:00)
[2018-11-23] MEDS: FILTER, DISP 1.2 MICRON FOR TPN/PVN IV PRN (17:24)
[2018-11-23] MEDS: ENOXAPARIN 40 MG/0.4 ML SQ SCH (20:18)
[2018-11-23 20:36] VITALS: BP 147/66
[2018-11-24] MEDS: LORazepam 2 MG/ML, 1ML IV SCH ×6 (01:30→22:03)
[2018-11-24 01:36] VITALS: BP 147/70
[2018-11-24 04:33] LABS: BASOPHILS # (AUTO) 0.01 x10^3/uL (0-0.1); BASOPHILS % (AUTO) 0 % (0-1); EOSINOPHILS # (AUTO) 0.93 x10^3/uL (0-0.4); EOSINOPHILS % (AUTO) 12 % (1-7); LYMPHOCYTES # (AUTO) 2.14 x10^3/uL (1-3.4); LYMPHOCYTES % (AUTO) 28 % (22-44); MD NO; MEAN CORPUSCULAR HEMOGLOBIN 31.5 pg (27.0-34.8); MEAN CORPUSCULAR HGB CONC 33.6 g/dL (32.4-35.8); MEAN CORPUSCULAR VOLUME 93.8 fL (80-100); MONOCYTES # (AUTO) 0.78 x10^3/uL (0.2-0.8); MONOCYTES % (AUTO) 10 % (2-9); NEUTROPHILS # (AUTO) 3.72 x10^3/uL (1.8-6.8); NEUTROPHILS % (AUTO) 49 % (42-75); PLATELET COUNT 280 x10^3/uL (130-400); RED BLOOD COUNT 3.95 x10^6/uL (3.82-5.3); RED CELL DISTRIBUTION WIDTH 13.8 % (9.6-15.2)
[2018-11-24 04:45] LABS: ALANINE AMINOTRANSFERASE 121 U/L (12-78); ALBUMIN 2.4 g/dL (3.4-5.0); ANION GAP 6 mmol/L (5-15); CALCIUM 8.6 mg/dL (8.5-10.1); CHLORIDE 113 mmol/L (98-107); CREATININE 0.59 mg/dL (0.55-1.02)
[2018-11-24 04:51] LABS: ALKALINE PHOSPHATASE 220 U/L (45-117); BILIRUBIN,TOTAL 0.4 mg/dL (0.2-1.0); CREATINE KINASE, TOTAL 128 U/L (26-192)
[2018-11-24] MEDS: INSULIN REGULAR 100 UNITS/ML, 3ML VIAL SQ-INSULIN SCH (04:58)
[2018-11-24 05:06] VITALS: BP 158/75
[2018-11-24] MEDS: SODIUM CHLORIDE 0.45% 1,000 ML IV SCH (05:28)
[2018-11-24] MEDS: hydrALAzine 20 MG/ML, 1ML IVPush PRN (08:50)
[2018-11-24] MEDS: LEVOTHYROXINE 100 MCG INJ IVPush SCH (08:53)
[2018-11-24] MEDS: LINEZOLID PMX 600MG/300ML 300 ML IV SCH ×2 (09:32→21:53)
[2018-11-24] MEDS: VANCOMYCIN 1,500 MG in SODIUM CHLORIDE 0.9% 250 ML IV SCH (16:48)
[2018-11-24] MEDS ORDERED: DEXTROSE 70% IV SCH (17:00)
[2018-11-24] MEDS ORDERED: [UNRECOGNIZED DRUG - OTHER] IV SCH (17:00)
[2018-11-24] MEDS ORDERED: FAT EMUL IV SCH (17:00)
[2018-11-24] MEDS ORDERED: SMOF TPN IV SCH (17:00)
[2018-11-24] MEDS ORDERED: AMINO ACID 10% IV SCH (17:00)
[2018-11-24] MEDS: ENOXAPARIN 40 MG/0.4 ML SQ SCH (20:35)
[2018-11-25] MEDS: LORazepam 2 MG/ML, 1ML IV SCH ×6 (01:40→21:30)
[2018-11-25 04:22] LABS: BASOPHILS # (AUTO) 0.02 x10^3/uL (0-0.1); BASOPHILS % (AUTO) 0 % (0-1); EOSINOPHILS # (AUTO) 0.97 x10^3/uL (0-0.4); EOSINOPHILS % (AUTO) 12 % (1-7); LYMPHOCYTES # (AUTO) 2.44 x10^3/uL (1-3.4); LYMPHOCYTES % (AUTO) 29 % (22-44); MD NO; MEAN CORPUSCULAR HEMOGLOBIN 30.6 pg (27.0-34.8); MEAN CORPUSCULAR HGB CONC 32.7 g/dL (32.4-35.8); MEAN CORPUSCULAR VOLUME 93.7 fL (80-100); MEAN PLATELET VOLUME 8.4 fL (7.4-10.4); MONOCYTES # (AUTO) 0.83 x10^3/uL (0.2-0.8); MONOCYTES % (AUTO) 10 % (2-9); NEUTROPHILS # (AUTO) 4.06 x10^3/uL (1.8-6.8); NEUTROPHILS % (AUTO) 49 % (42-75); PLATELET COUNT 339 x10^3/uL (130-400); RED BLOOD COUNT 4.16 x10^6/uL (3.82-5.3); RED CELL DISTRIBUTION WIDTH 13.9 % (9.6-15.2)
[2018-11-25 04:32] LABS: ANION GAP 7 mmol/L (5-15); CALCIUM 8.9 mg/dL (8.5-10.1); CHLORIDE 112 mmol/L (98-107); CREATININE 0.61 mg/dL (0.55-1.02)
[2018-11-25] MEDS: INSULIN REGULAR 100 UNITS/ML, 3ML VIAL SQ-INSULIN SCH (05:00)
[2018-11-25 05:34] LABS: THYROID STIMULATING HORMONE 2.28 mIU/L (0.358-3.740)
[2018-11-25] MEDS: LINEZOLID PMX 600MG/300ML 300 ML IV SCH ×2 (09:11→19:53)
[2018-11-25] MEDS: LEVOTHYROXINE 100 MCG INJ IVPush SCH (09:12)
--- NOTE | 2018-11-25 11:10 | NUR ---
11/25 TF GOAL: JEVITY 1.2 @ 55ML/HR
[2018-11-25] MEDS: VANCOMYCIN 1,500 MG in SODIUM CHLORIDE 0.9% 250 ML IV SCH (11:52)
[2018-11-25] MEDS ORDERED: [UNRECOGNIZED DRUG - OTHER] IV SCH (17:00)
[2018-11-25] MEDS ORDERED: SMOF TPN IV SCH (17:00)
[2018-11-25] MEDS ORDERED: AMINO ACID 10% IV SCH (17:00)
[2018-11-25] MEDS ORDERED: DEXTROSE 70% IV SCH (17:00)
[2018-11-25] MEDS ORDERED: FAT EMUL IV SCH (17:00)
[2018-11-25] MEDS: ENOXAPARIN 40 MG/0.4 ML SQ SCH (19:52)
[2018-11-26] MEDS: LORazepam 2 MG/ML, 1ML IV SCH ×6 (01:14→21:15)
[2018-11-26 04:50] LABS: ANION GAP 8 mmol/L (5-15); CALCIUM 9.5 mg/dL (8.5-10.1); CHLORIDE 111 mmol/L (98-107)
[2018-11-26 04:55] LABS: CREATININE 0.56 mg/dL (0.55-1.02); PREALBUMIN 31.5 mg/dL (20.0-40.0); TRIGLYCERIDES 197 mg/dL (50-200)
[2018-11-26] MEDS: INSULIN REGULAR 100 UNITS/ML, 3ML VIAL SQ-INSULIN SCH (05:00)
[2018-11-26] MEDS: VANCOMYCIN 1,500 MG in SODIUM CHLORIDE 0.9% 250 ML IV SCH ×2 (05:01→23:19)
[2018-11-26] MEDS: LINEZOLID PMX 600MG/300ML 300 ML IV SCH ×2 (08:40→21:16)
[2018-11-26] MEDS: LEVOTHYROXINE 100 MCG INJ IVPush SCH (08:41)
[2018-11-26] MEDS ORDERED: MEMANTINE 10MG TABLET PO ONE (10:30)
[2018-11-26] MEDS ORDERED: SMOF TPN IV SCH ×2 (17:00)
[2018-11-26] MEDS ORDERED: FAT EMUL IV SCH ×2 (17:00)
[2018-11-26] MEDS ORDERED: AMINO ACID 10% IV SCH ×2 (17:00)
[2018-11-26] MEDS ORDERED: DEXTROSE 70% IV SCH ×2 (17:00)
[2018-11-26] MEDS ORDERED: [UNRECOGNIZED DRUG - OTHER] IV SCH (17:00)
[2018-11-26] MEDS ORDERED: [UNRECOGNIZED DRUG - OTHER] IV SCH (17:00)
[2018-11-26 19:58] VITALS: BP 151/92
[2018-11-26] MEDS: ENOXAPARIN 40 MG/0.4 ML SQ SCH (21:16)
[2018-11-27 01:05] VITALS: BP 145/79
[2018-11-27] MEDS: LORazepam 2 MG/ML, 1ML IV SCH ×6 (01:55→21:30)
[2018-11-27 07:06] VITALS: BP 155/76
[2018-11-27 07:12] LABS: ANION GAP 8 mmol/L (5-15); CALCIUM 9.5 mg/dL (8.5-10.1); CHLORIDE 111 mmol/L (98-107)
[2018-11-27 07:16] LABS: CREATININE 0.66 mg/dL (0.55-1.02)
[2018-11-27] MEDS: INSULIN REGULAR 100 UNITS/ML, 3ML VIAL SQ-INSULIN SCH (07:45)
[2018-11-27] MEDS ORDERED: MEMANTINE 5MG TABLET PO ONE (09:00)
[2018-11-27] MEDS: LEVOTHYROXINE 100 MCG INJ IVPush SCH (09:12)
[2018-11-27] MEDS: LINEZOLID PMX 600MG/300ML 300 ML IV SCH (09:12)
[2018-11-27] MEDS: VANCOMYCIN 1,500 MG in SODIUM CHLORIDE 0.9% 250 ML IV SCH (17:38)
[2018-11-27 20:07] VITALS: BP 164/57
[2018-11-27] MEDS: MEMANTINE 10MG TABLET PO SCH (20:33)
[2018-11-27] MEDS ORDERED: MEMANTINE 10MG TABLET PO ONE (21:00)
[2018-11-27] MEDS: ENOXAPARIN 40 MG/0.4 ML SQ SCH (21:30)
[2018-11-28] MEDS: LORazepam 2 MG/ML, 1ML IV SCH ×6 (01:30→21:43)
[2018-11-28 01:51] VITALS: BP 168/66
[2018-11-28] MEDS: INSULIN REGULAR 100 UNITS/ML, 3ML VIAL SQ-INSULIN SCH (05:00)
[2018-11-28] MEDS: LEVOTHYROXINE 50 MCG TABLET PO SCH (06:01)
[2018-11-28 06:45] VITALS: BP 119/68
[2018-11-28] MEDS ORDERED: OLANZAPINE 2.5 MG TABLET PO PRN (08:00)
[2018-11-28] MEDS ORDERED: MEMANTINE 10MG TABLET PO SCH (09:00)
[2018-11-28] MEDS: OLANZAPINE 2.5 MG TABLET PO SCH (09:00)
[2018-11-28] MEDS: MEMANTINE 10MG TABLET PO SCH ×2 (09:32→21:43)
[2018-11-28 09:34] VITALS: BP 126/76
[2018-11-28] MEDS: VANCOMYCIN 1,500 MG in SODIUM CHLORIDE 0.9% 250 ML IV SCH (12:52)
[2018-11-28 15:55] VITALS: BP 159/82
[2018-11-28] MEDS: SODIUM CHLORIDE 0.45% 1,000 ML IV SCH (16:09)
[2018-11-28 19:10] VITALS: BP 152/91
[2018-11-28] MEDS: ENOXAPARIN 40 MG/0.4 ML SQ SCH (21:47)
[2018-11-29 01:30] VITALS: BP 166/80
[2018-11-29] MEDS: LORazepam 2 MG/ML, 1ML IV SCH ×6 (01:48→21:53)
[2018-11-29] MEDS: INSULIN REGULAR 100 UNITS/ML, 3ML VIAL SQ-INSULIN SCH (05:00)
[2018-11-29] MEDS ORDERED: VANCOMYCIN 1,600 MG in SODIUM CHLORIDE 0.9% 250 ML IV SCH (06:00)
[2018-11-29] MEDS: VANCOMYCIN 1,600 MG in SODIUM CHLORIDE 0.9% 250 ML IV SCH (06:14)
[2018-11-29] MEDS: LEVOTHYROXINE 50 MCG TABLET PO SCH (06:15)
[2018-11-29 06:30] LABS: BASOPHILS # (AUTO) 0.04 x10^3/uL (0-0.1); BASOPHILS % (AUTO) 1 % (0-1); EOSINOPHILS # (AUTO) 0.35 x10^3/uL (0-0.4); EOSINOPHILS % (AUTO) 4 % (1-7); LYMPHOCYTES # (AUTO) 2.46 x10^3/uL (1-3.4); LYMPHOCYTES % (AUTO) 29 % (22-44); MD NO; MEAN CORPUSCULAR HEMOGLOBIN 31.1 pg (27.0-34.8); MEAN CORPUSCULAR HGB CONC 33.6 g/dL (32.4-35.8); MEAN CORPUSCULAR VOLUME 92.5 fL (80-100); MEAN PLATELET VOLUME 7.9 fL (7.4-10.4); MONOCYTES # (AUTO) 0.85 x10^3/uL (0.2-0.8); MONOCYTES % (AUTO) 10 % (2-9); NEUTROPHILS # (AUTO) 4.72 x10^3/uL (1.8-6.8); NEUTROPHILS % (AUTO) 56 % (42-75); PLATELET COUNT 429 x10^3/uL (130-400); RED BLOOD COUNT 3.83 x10^6/uL (3.82-5.3); RED CELL DISTRIBUTION WIDTH 14.5 % (9.6-15.2)
[2018-11-29 06:36] LABS: ALBUMIN 2.8 g/dL (3.4-5.0); ANION GAP 8 mmol/L (5-15); CALCIUM 9.4 mg/dL (8.5-10.1); CHLORIDE 117 mmol/L (98-107)
[2018-11-29 06:42] LABS: ALANINE AMINOTRANSFERASE 90 U/L (12-78); ALKALINE PHOSPHATASE 318 U/L (45-117); BILIRUBIN,TOTAL 0.4 mg/dL (0.2-1.0); CREATININE 0.63 mg/dL (0.55-1.02); TOTAL PROTEIN 6.4 g/dL (6.4-8.2)
[2018-11-29] MEDS ORDERED: POTASSIUM CHLORIDE 20 MEQ TAB.ER.PRT PO ONE (07:00)
[2018-11-29 08:29] VITALS: BP 171/100
[2018-11-29] MEDS: hydrALAzine 20 MG/ML, 1ML IVPush PRN (09:39)
[2018-11-29] MEDS: OLANZAPINE 2.5 MG TABLET PO SCH (09:40)
[2018-11-29] MEDS: MEMANTINE 10MG TABLET PO SCH ×2 (09:41→20:45)
[2018-11-29] MEDS: SODIUM CHLORIDE 0.45% 1,000 ML IV SCH (09:52)
[2018-11-29 11:28] VITALS: BP 135/90
[2018-11-29] MEDS ORDERED: VANCOMYCIN PER PHARMACY MC PRN (15:00)
[2018-11-29 15:30] VITALS: BP 169/79
[2018-11-29 20:00] VITALS: BP 143/71
[2018-11-29] MEDS: ENOXAPARIN 40 MG/0.4 ML SQ SCH (20:45)
[2018-11-29] MEDS: ZOLPIDEM 5MG TABLET PO SCH (20:45)
[2018-11-30] MEDS: SODIUM CHLORIDE 0.45% 1,000 ML IV SCH ×2 (00:08→22:31)
[2018-11-30 01:39] VITALS: BP 154/79
[2018-11-30] MEDS: LORazepam 2 MG/ML, 1ML IV SCH ×6 (02:14→22:27)
[2018-11-30] MEDS: VANCOMYCIN 1,600 MG in SODIUM CHLORIDE 0.9% 250 ML IV SCH (05:54)
[2018-11-30] MEDS: INSULIN REGULAR 100 UNITS/ML, 3ML VIAL SQ-INSULIN SCH (06:30)
[2018-11-30 10:26] VITALS: BP 165/82
[2018-11-30] MEDS: LEVOTHYROXINE 50 MCG TABLET PO SCH (10:45)
[2018-11-30] MEDS: MEMANTINE 10MG TABLET PO SCH ×2 (10:45→21:06)
[2018-11-30] MEDS: OLANZAPINE 2.5 MG TABLET PO SCH (10:45)
[2018-11-30 13:53] VITALS: BP 160/64
[2018-11-30 16:02] LABS: HCT (SEDRATE) 33.4 % (34.6-47.8)
[2018-11-30 19:46] VITALS: BP 178/68
[2018-11-30] MEDS: ZOLPIDEM 5MG TABLET PO SCH (21:06)
[2018-11-30] MEDS: ENOXAPARIN 40 MG/0.4 ML SQ SCH (21:06)
[2018-12-01 01:03] VITALS: BP 176/79
[2018-12-01] MEDS: hydrALAzine 20 MG/ML, 1ML IVPush PRN (01:17)
[2018-12-01] MEDS: LORazepam 2 MG/ML, 1ML IV SCH ×6 (02:42→23:21)
[2018-12-01] MEDS: VANCOMYCIN 1,600 MG in SODIUM CHLORIDE 0.9% 250 ML IV SCH (05:54)
[2018-12-01] MEDS: LEVOTHYROXINE 50 MCG TABLET PO SCH (06:19)
[2018-12-01] MEDS: INSULIN REGULAR 100 UNITS/ML, 3ML VIAL SQ-INSULIN SCH (06:20)
[2018-12-01 06:57] VITALS: BP 166/77
[2018-12-01] MEDS: MEMANTINE 10MG TABLET PO SCH ×2 (07:46→23:20)
[2018-12-01] MEDS: OLANZAPINE 2.5 MG TABLET PO SCH (07:46)
[2018-12-01 12:08] VITALS: BP 165/83
[2018-12-01] MEDS ORDERED: LORazepam 2 MG/ML, 1ML IV SCH ×2 (17:30→18:30)
[2018-12-01] MEDS: SODIUM CHLORIDE 0.45% 1,000 ML IV SCH (17:55)
[2018-12-01 20:00] VITALS: BP 158/70
[2018-12-01] MEDS: QUETIAPINE 25MG TABLET NG SCH (23:14)
[2018-12-01] MEDS: ENOXAPARIN 40 MG/0.4 ML SQ SCH (23:21)
[2018-12-02 00:10] VITALS: BP_SYST 175; BP_DIAS 86; BP_DIAS 92
[2018-12-02] MEDS: LORazepam 2 MG/ML, 1ML IV SCH ×5 (03:24→20:00)
[2018-12-02 04:04] VITALS: BP 101/63
[2018-12-02] MEDS: VANCOMYCIN 1,600 MG in SODIUM CHLORIDE 0.9% 250 ML IV SCH (06:24)
[2018-12-02] MEDS: LEVOTHYROXINE 50 MCG TABLET PO SCH (06:24)
[2018-12-02] MEDS: INSULIN REGULAR 100 UNITS/ML, 3ML VIAL SQ-INSULIN SCH (06:30)
[2018-12-02] MEDS: MEMANTINE 10MG TABLET PO SCH ×2 (07:40→22:15)
[2018-12-02 08:46] VITALS: BP 176/94
[2018-12-02 13:24] VITALS: BP 166/84
[2018-12-02 19:51] VITALS: BP 168/85
[2018-12-02] MEDS: QUETIAPINE 25MG TABLET NG SCH (22:14)
[2018-12-02] MEDS: ENOXAPARIN 40 MG/0.4 ML SQ SCH (22:16)
[2018-12-03 00:01] VITALS: BP 167/98
[2018-12-03] MEDS: LORazepam 2 MG/ML, 1ML IV SCH ×6 (00:16→20:08)
[2018-12-03] MEDS: LEVOTHYROXINE 50 MCG TABLET PO SCH (06:00)
[2018-12-03] MEDS: VANCOMYCIN 1,600 MG in SODIUM CHLORIDE 0.9% 250 ML IV SCH (06:20)
[2018-12-03 08:20] VITALS: BP 113/75
[2018-12-03] MEDS ORDERED: PROPOFOL 10 MG/ML, 20ML ONE (10:20)
[2018-12-03 11:55] VITALS: BP 167/78
[2018-12-03] MEDS: MEMANTINE 10MG TABLET PO SCH (12:18)
[2018-12-03 14:40] VITALS: BP 161/92
[2018-12-03 20:04] VITALS: BP 172/95
[2018-12-03 22:11] VITALS: BP 167/100
[2018-12-03] MEDS: QUETIAPINE 25MG TABLET NG SCH (22:34)
[2018-12-03] MEDS: ENOXAPARIN 40 MG/0.4 ML SQ SCH (22:35)
[2018-12-04 00:38] VITALS: BP 149/75
[2018-12-04] MEDS: LORazepam 2 MG/ML, 1ML IV SCH ×6 (00:40→21:35)
[2018-12-04] MEDS: MEMANTINE 10MG TABLET PO SCH ×3 (00:41→17:41)
[2018-12-04 05:09] VITALS: BP 118/72
[2018-12-04] MEDS: LEVOTHYROXINE 50 MCG TABLET PO SCH (05:16)
[2018-12-04] MEDS: VANCOMYCIN 1,600 MG in SODIUM CHLORIDE 0.9% 250 ML IV SCH (06:19)
[2018-12-04 08:33] VITALS: BP 162/87
[2018-12-04] MEDS: QUETIAPINE 25MG TABLET PO SCH (08:40)
[2018-12-04 18:54] VITALS: BP 165/93
[2018-12-04] MEDS: ENOXAPARIN 40 MG/0.4 ML SQ SCH (21:35)
[2018-12-04] MEDS: QUETIAPINE 25MG TABLET NG SCH (21:35)
[2018-12-05] MEDS: LORazepam 2 MG/ML, 1ML IV SCH ×6 (00:08→23:17)
[2018-12-05] MEDS: MEMANTINE 10MG TABLET PO SCH ×3 (00:08→15:37)
[2018-12-05 01:56] VITALS: BP 126/76
[2018-12-05] MEDS: LEVOTHYROXINE 50 MCG TABLET PO SCH (05:20)
[2018-12-05] MEDS: VANCOMYCIN 1,600 MG in SODIUM CHLORIDE 0.9% 250 ML IV SCH (05:25)
[2018-12-05] MEDS: QUETIAPINE 25MG TABLET PO SCH (07:54)
[2018-12-05 08:17] VITALS: BP 155/83
[2018-12-05 15:07] VITALS: BP 168/84
[2018-12-05 19:12] VITALS: BP 165/89
[2018-12-05] MEDS: ENOXAPARIN 40 MG/0.4 ML SQ SCH (19:41)
[2018-12-05] MEDS: QUETIAPINE 25MG TABLET NG SCH (19:41)
[2018-12-06] MEDS: MEMANTINE 10MG TABLET PO SCH ×3 (00:27→17:57)
[2018-12-06 01:10] VITALS: BP 159/91
[2018-12-06] MEDS: LORazepam 2 MG/ML, 1ML IV SCH ×5 (03:04→21:59)
[2018-12-06] MEDS: SODIUM CHLORIDE 0.45% 1,000 ML IV SCH (04:53)
[2018-12-06] MEDS: VANCOMYCIN 1,600 MG in SODIUM CHLORIDE 0.9% 250 ML IV SCH (05:23)
[2018-12-06] MEDS: LEVOTHYROXINE 50 MCG TABLET PO SCH (05:23)
[2018-12-06 07:41] LABS: BASOPHILS # (AUTO) 0.05 x10^3/uL (0-0.1); BASOPHILS % (AUTO) 1 % (0-1); EOSINOPHILS # (AUTO) 0.44 x10^3/uL (0-0.4); EOSINOPHILS % (AUTO) 4 % (1-7); LYMPHOCYTES % (AUTO) 23 % (22-44); MD NO; MEAN CORPUSCULAR HEMOGLOBIN 30.7 pg (27.0-34.8); MEAN CORPUSCULAR HGB CONC 33.2 g/dL (32.4-35.8); MEAN CORPUSCULAR VOLUME 92.5 fL (80-100); MEAN PLATELET VOLUME 8.5 fL (7.4-10.4); MONOCYTES # (AUTO) 0.81 x10^3/uL (0.2-0.8); MONOCYTES % (AUTO) 8 % (2-9); NEUTROPHILS # (AUTO) 6.32 x10^3/uL (1.8-6.8); NEUTROPHILS % (AUTO) 64 % (42-75); PLATELET COUNT 300 x10^3/uL (130-400); RED BLOOD COUNT 3.77 x10^6/uL (3.82-5.3); RED CELL DISTRIBUTION WIDTH 15.4 % (9.6-15.2)
[2018-12-06 07:45] LABS: ALANINE AMINOTRANSFERASE 55 U/L (12-78); ALBUMIN 2.8 g/dL (3.4-5.0); ANION GAP 10 mmol/L (5-15); CALCIUM 9.3 mg/dL (8.5-10.1); CHLORIDE 119 mmol/L (98-107); CREATININE 0.64 mg/dL (0.55-1.02)
[2018-12-06 07:50] LABS: ALKALINE PHOSPHATASE 169 U/L (45-117); BILIRUBIN,TOTAL 0.3 mg/dL (0.2-1.0); TOTAL PROTEIN 6.3 g/dL (6.4-8.2)
[2018-12-06 07:51] VITALS: BP 153/88
[2018-12-06] MEDS: QUETIAPINE 25MG TABLET PO SCH (08:02)
[2018-12-06 14:18] VITALS: BP 142/90
[2018-12-06 19:50] VITALS: BP 178/93
[2018-12-06 21:50] VITALS: BP 180/93
[2018-12-06] MEDS: ZOLPIDEM 5MG TABLET NG PRN (21:50)
[2018-12-06] MEDS: ENOXAPARIN 40 MG/0.4 ML SQ SCH (21:50)
[2018-12-06] MEDS: QUETIAPINE 25MG TABLET NG SCH (21:50)
[2018-12-06] MEDS: hydrALAzine 20 MG/ML, 1ML IVPush PRN (21:52)
[2018-12-06 23:30] VITALS: BP 156/82
[2018-12-07 00:52] VITALS: BP 148/82
[2018-12-07] MEDS: LORazepam 2 MG/ML, 1ML IV SCH ×5 (02:00→19:52)
[2018-12-07] MEDS: MEMANTINE 10MG TABLET PO SCH ×3 (02:00→17:38)
[2018-12-07] MEDS: SODIUM CHLORIDE 0.45% 1,000 ML IV SCH (03:30)
[2018-12-07] MEDS: LEVOTHYROXINE 50 MCG TABLET PO SCH (06:21)
[2018-12-07 09:30] VITALS: BP 161/89
[2018-12-07] MEDS: QUETIAPINE 25MG TABLET PO SCH (10:08)
[2018-12-07 15:07] VITALS: BP 163/70
[2018-12-07] MEDS: ENOXAPARIN 40 MG/0.4 ML SQ SCH (19:52)
[2018-12-07] MEDS: QUETIAPINE 25MG TABLET NG SCH (19:52)
[2018-12-07 19:55] VITALS: BP 157/83
[2018-12-07] MEDS: ZOLPIDEM 5MG TABLET NG PRN (21:22)
[2018-12-08] MEDS: LORazepam 2 MG/ML, 1ML IV SCH ×6 (00:50→21:45)
[2018-12-08 01:18] VITALS: BP 164/75
[2018-12-08] MEDS: MEMANTINE 10MG TABLET PO SCH ×3 (01:55→21:46)
[2018-12-08] MEDS: SODIUM CHLORIDE 0.45% 1,000 ML IV SCH (01:55)
[2018-12-08] MEDS: LEVOTHYROXINE 50 MCG TABLET PO SCH (05:14)
[2018-12-08] MEDS: QUETIAPINE 25MG TABLET PO SCH (09:00)
[2018-12-08 09:03] VITALS: BP 134/77
[2018-12-08 11:23] LABS: CALCIUM 8.6 mg/dL (8.5-10.1); CREATININE 0.73 mg/dL (0.55-1.02)
[2018-12-08 11:32] LABS: ANION GAP 9 mmol/L (5-15); CHLORIDE 121 mmol/L (98-107)
[2018-12-08] MEDS ORDERED: POTASSIUM CHLORIDE 20 MEQ TAB.ER.PRT NG SCH (12:00)
[2018-12-08] MEDS ORDERED: DEXTROSE 5% 1,000 ML IV SCH (12:00)
[2018-12-08] MEDS: POTASSIUM CHLORIDE 20 MEQ PACKET NG SCH ×2 (12:20→16:04)
[2018-12-08 14:15] VITALS: BP 154/91
[2018-12-08 17:53] LABS: ANION GAP 10 mmol/L (5-15); CALCIUM 8.6 mg/dL (8.5-10.1); CHLORIDE 123 mmol/L (98-107); CREATININE 0.92 mg/dL (0.55-1.02)
[2018-12-08 20:15] VITALS: BP 159/91
[2018-12-08] MEDS ORDERED: QUETIAPINE 25MG TABLET PO SCH (21:00)
[2018-12-08] MEDS: ENOXAPARIN 40 MG/0.4 ML SQ SCH (21:45)
[2018-12-08] MEDS: QUETIAPINE 25MG TABLET NG SCH (21:45)
[2018-12-09 01:18] VITALS: BP 160/94
[2018-12-09] MEDS: LORazepam 2 MG/ML, 1ML IV SCH ×5 (02:24→20:13)
[2018-12-09] MEDS: LEVOTHYROXINE 50 MCG TABLET PO SCH (06:37)
[2018-12-09 07:25] LABS: ANION GAP 11 mmol/L (5-15); CALCIUM 9.6 mg/dL (8.5-10.1); CHLORIDE 128 mmol/L (98-107); CREATININE 0.88 mg/dL (0.55-1.02)
[2018-12-09 08:00] VITALS: BP 143/93
[2018-12-09] MEDS ORDERED: POTASSIUM CHLORIDE 20 MEQ in DEXTROSE 5% 1,000 ML IV SCH (08:00)
[2018-12-09] MEDS ORDERED: QUETIAPINE 25MG TABLET PO SCH (09:00)
[2018-12-09] MEDS: POTASSIUM CHLORIDE 10% 40 MEQ/30 ML UDC PO/NG SCH ×2 (09:26→13:45)
[2018-12-09] MEDS: MEMANTINE 10MG TABLET PO SCH (11:19)
[2018-12-09] MEDS ORDERED: AMLODIPINE 2.5 MG TABLET NG SCH (12:00)
[2018-12-09 13:13] VITALS: BP 139/93
[2018-12-09 14:00] VITALS: BP 138/85
--- NOTE | 2018-12-09 14:58 | NUR ---
REC: NPO with PEG vs. Dobhoff Addendum: 12/09/18 at 1459 by Nayla DIANE Amended: Links added.
[2018-12-09] MEDS ORDERED: BISACODYL 10 MG SUPP PR ONE (15:00)
[2018-12-09 15:56] LABS: ANION GAP 9 mmol/L (5-15); CALCIUM 10.1 mg/dL (8.5-10.1); CHLORIDE 126 mmol/L (98-107); CREATININE 0.97 mg/dL (0.55-1.02)
[2018-12-09 16:01] LABS: TROPONIN I 0.033 ng/mL (0.000-0.045)
[2018-12-09] MEDS ORDERED: MEROPENEM 1 GM in SODIUM CHLORIDE 0.9% 100 ML IV SCH (17:00)
[2018-12-09] MEDS ORDERED: POTASSIUM CHLORIDE 10% 40 MEQ/30 ML UDC PO ONE (18:00)
[2018-12-09 19:52] VITALS: BP 58/23
[2018-12-09] MEDS ORDERED: SODIUM CHLORIDE 0.9% 1,000 ML IVBOLUS PRN (20:03)
[2018-12-09] MEDS ORDERED: MORPHINE SULFATE 4 MG/ML, 1ML IV PRN (20:30)
== END 2018-12-09 23:00 | disposition expired | DRG 885 ==
LOC: 4WST 15:43 → CCU 11-07 15:03 → 4EST 11-07 16:49 → 4WST 11-07 17:52 → CCU 11-11 19:24 → 3NE 11-26 15:17
PROVIDERS: ADMIT Internal Medicine Infectious Disease; ATTEND Internal Medicine Infectious Disease
PROC: 0T9B70Z Drainage of Bladder with Drainage Device, Via Natural or Artificial Opening (ICD-10-PCS; 2018-11-06)
PROC: B01B1ZZ Fluoroscopy of Spinal Cord using Low Osmolar Contrast (ICD-10-PCS; 2018-11-07)
PROC: 009U3ZZ Drainage of Spinal Canal, Percutaneous Approach (ICD-10-PCS; principal; 2018-11-07 16:00)
PROC: 02HV33Z Insertion of Infusion Device into Superior Vena Cava, Percutaneous Approach (ICD-10-PCS; 2018-11-12)
PROC: B5181ZA Fluoroscopy of Superior Vena Cava using Low Osmolar Contrast, Guidance (ICD-10-PCS; 2018-11-12)
PROC: B548ZZA Ultrasonography of Superior Vena Cava, Guidance (ICD-10-PCS; 2018-11-12)
DX: F23 Brief psychotic disorder (principal); A41.9 Sepsis, unspecified organism; G21.0 Malignant neuroleptic syndrome; J69.0 Pneumonitis due to inhalation of food and vomit; J96.01 Acute respiratory failure with hypoxia; E46 Unspecified protein-calorie malnutrition; E87.0 Hyperosmolality and hypernatremia; E87.1 Hypo-osmolality and hyponatremia; E87.2 Acidosis; M62.82 Rhabdomyolysis; N39.0 Urinary tract infection, site not specified; K56.7 Ileus, unspecified; I82.611 Acute embolism and thrombosis of superficial veins of right upper extremity; F20.2 Catatonic schizophrenia; Z66 Do not resuscitate; B95.2 Enterococcus as the cause of diseases classified elsewhere; B95.7 Other staphylococcus as the cause of diseases classified elsewhere; E03.9 Hypothyroidism, unspecified; E83.41 Hypermagnesemia; E87.6 Hypokalemia; F41.9 Anxiety disorder, unspecified; G24.01 Drug induced subacute dyskinesia; G25.0 Essential tremor; H49.9 Unspecified paralytic strabismus; I10 Essential (primary) hypertension; K76.0 Fatty (change of) liver, not elsewhere classified; K80.20 Calculus of gallbladder without cholecystitis without obstruction; R13.10 Dysphagia, unspecified; R47.02 Dysphasia; Z16.21 Resistance to vancomycin; Z78.9 Other specified health status; Z79.890 Hormone replacement therapy; Z68.31 Body mass index [BMI] 31.0-31.9, adult; Z79.899 Other long term (current) drug therapy; Z82.0 Family history of epilepsy and other diseases of the nervous system; Z88.0 Allergy status to penicillin; Z90.49 Acquired absence of other specified parts of digestive tract
CPT/HCPCS: 36415; 36600; 74018; 74230; 77002; 86592; 87806; J3475; J3490; 36573; 62270; 70450; 70551; 70553; 71045; 71260; 74177; 76700; 80048; 80053; 80074; 80076; 80178; 80202; 81001; 81003; 82140; 82550; 82607; 82728; 82803; 82945; 82962; 83540; 83550; 83605; 83735; 83930; 84100; 84134; 84157; 84439; 84443; 84478; 84481; 84484; 85025; 85610; 85651; 85730; 86316; 87040; 87077; 87081; 87086; 87186; 87324; 89051; 93005; 93306; 95816; A9585; G0378; J0610; J0696; J1644; J1650; J1940; J2020; J2185; J2250; J2704; J3010; J3230; J3360; J3370; J3480; J7070; 92523-GN; C1751; G0475; J0330; J0360; J2060; J2370; J7030; J7040; J7050